=== PATIENT | male | born 1930 | race Caucasian/White ===

== ENCOUNTER 2019-02-14 16:29 | Inpatient (IN) | payer OTHER, MEDICAID ==
[~2019-02-14] VITALS: Ht 175.3 cm; Wt 75.7 kg
[2019-02-14 16:32] VITALS: BP_SYST 110
[2019-02-14] MEDS ORDERED: NS 500 ML IV ONE (16:45)
[2019-02-14 17:14] LABS: BASOPHILS # (AUTO) 0.1 K/uL (0.0-0.2); BASOPHILS % (AUTO) 0.9 % (0.0-2.0); EOSINOPHILS # (AUTO) 0.3 K/uL (0.0-0.4); EOSINOPHILS % (AUTO) 3.2 % (0.0-4.0); HEMATOCRIT 26.7 % (36-54); LYMPHOCYTES # (AUTO) 1.5 K/uL (1.0-5.5); LYMPHOCYTES % (AUTO) 15.5 % (20.5-51.5); MEAN CORPUSCULAR HEMOGLOBIN 31 pg (27-31); MEAN CORPUSCULAR HGB CONC 34 % (32-36); MEAN CORPUSCULAR VOLUME 92 fL (79.0-98.0); MONOCYTES # (AUTO) 0.6 K/uL (0.0-1.0); MONOCYTES % (AUTO) 6.4 % (1.7-9.3); NEUTROPHILS # (AUTO) 7.1 K/uL (1.8-7.7); PLATELET COUNT (AUTO) 338 K/uL (130-430); RED BLOOD CELL COUNT(AUTO) 2.91 MIL/uL (4.2-6.2); RED CELL DISTRIBUTION WIDTH 14.5 % (9.0-15.0); WHITE BLOOD COUNT (AUTO) 9.6 K/uL (4.8-10.8)
[2019-02-14 17:30] LABS: INR 1.1 (0.80-1.20); PROTHROMBIN TIME 11.1 SECS (9.5-12.5)
[2019-02-14 17:32] LABS: ANION GAP 11 (5-15); CALCIUM 8.8 mg/dL (8.4-11.0); CHLORIDE 103 mmol/L (98-107); CREATININE 3.43 mg/dL (0.55-1.30); GLUCOSE 92 mg/dL (70-99); POTASSIUM 4.8 mmol/L (3.5-5.1); SODIUM SERUM 135 mmol/L (136-145); UREA NITROGEN, BLOOD 51 mg/dL (8-21)
[2019-02-14 17:38] LABS: ALANINE AMINOTRANSFERASE 10 U/L (12-78); ALBUMIN 2.6 g/dL (3.4-4.8); ASPARTATE AMINOTRANSFERASE 16 U/L (10-37); TOTAL BILIRUBIN 0.4 mg/dL (0.0-1.0)
[2019-02-14 17:51] LABS: BILIRUBIN,URINE NEGATIVE (NEGATIVE); CLARITY/URINE CLOUDY (CLEAR); COLOR,URINE YELLOW (YELLOW); GLUCOSE,URINE NEGATIVE (NEGATIVE); KETONES,URINE NEGATIVE (NEGATIVE); LEUKOCYTE ESTERASE ,URINE 3+ (NEGATIVE); NITRITE, URINE NEGATIVE (NEGATIVE); PROTEIN URINE NEGATIVE (NEGATIVE); UROBILINOGEN,URINE 0.2 (0.2-1.0)
[2019-02-14 17:54] LABS: BLOOD, URINE TRACE (NEGATIVE)
[2019-02-14 18:03] LABS: BACTERIA,URINE MODERATE /HPF (None Seen); WBC,URINE >100 /HPF (0-3)
[2019-02-14 18:04] LABS: MUCUS,URINE None Seen /LPF (None Seen); URINE AMORPHOUS URATE 3+ /HPF (None Seen)
[2019-02-14] MEDS ORDERED: LEVOFLOXACIN 500 MG/D5W 100 ML IV ONE (19:15)
[2019-02-14 20:18] VITALS: BP_SYST 131
[2019-02-14 20:50] VITALS: BP_SYST 135
[2019-02-14] MEDS ORDERED: MILK OF MAGNESIA 30 ML UDC PO PRN (21:45)
[2019-02-14] MEDS ORDERED: ACETAMINOPHEN 325 MG TABLET PO PRN (21:45)
[2019-02-14] MEDS ORDERED: BISACODYL 10 MG/SUPPOSITORY RC PRN (21:45)
[2019-02-14] MEDS: 0.45% NACL 1,000 ML IV SCH (22:44)
[2019-02-15 00:18] VITALS: BP_SYST 112
[2019-02-15] MEDS: 0.45% NACL 1,000 ML IV SCH ×3 (03:17→19:39)
[2019-02-15] MEDS ORDERED: ASPI-1153 PO (03:39)
[2019-02-15] MEDS ORDERED: DILT240C91 PO (03:39)
[2019-02-15] MEDS ORDERED: LOSA25TA3 PO (03:39)
[2019-02-15] MEDS ORDERED: AMI200 PO (03:39)
[2019-02-15] MEDS ORDERED: BISA10SU61 RC (03:39)
[2019-02-15] MEDS ORDERED: ACET-2165 PO (03:39)
[2019-02-15] MEDS ORDERED: MIRT15TA7 PO (03:48)
[2019-02-15] MEDS ORDERED: MOM PO (03:48)
[2019-02-15] MEDS ORDERED: RIVA1PAT12 TD (03:48)
[2019-02-15] MEDS ORDERED: TAMS-11 PO (03:48)
[2019-02-15] MEDS ORDERED: PRO40 PO (03:48)
[2019-02-15] MEDS ORDERED: MULT-1117 (03:48)
[2019-02-15] MEDS ORDERED: OSCD500 GT (03:48)
[2019-02-15 06:13] LABS: ALANINE AMINOTRANSFERASE 13 U/L (12-78); ALBUMIN 2.2 g/dL (3.4-4.8); ANION GAP 7 (5-15); ASPARTATE AMINOTRANSFERASE 10 U/L (10-37); CHLORIDE 104 mmol/L (98-107); CREATININE 2.82 mg/dL (0.55-1.30); GLUCOSE 86 mg/dL (70-99); POTASSIUM 4.2 mmol/L (3.5-5.1); SODIUM SERUM 132 mmol/L (136-145); TOTAL BILIRUBIN 0.3 mg/dL (0.0-1.0); UREA NITROGEN, BLOOD 47 mg/dL (8-21)
[2019-02-15] MEDS: PANTOPRAZOLE SODIUM 40 MG TAB PO SCH ×2 (06:48→17:27)
[2019-02-15 07:35] VITALS: BP_SYST 125
[2019-02-15] MEDS: CALCIUM CARBONATE/VITAMIN D3 1 TAB TABLET PO SCH ×2 (09:01→21:22)
[2019-02-15] MEDS: TAMSULOSIN HCL 0.4 MG CAP PO SCH (09:01)
[2019-02-15] MEDS: ASPIRIN 81 MG TAB.CHEW PO SCH (09:01)
[2019-02-15] MEDS: MULTIVITAMINS TAB 1 TABLET PO SCH (09:01)
[2019-02-15] MEDS: DILTIAZEM HCL 240 MG CAP.SR.24H PO SCH (09:05)
[2019-02-15] MEDS: LOSARTAN POTASSIUM 25 MG TABLET PO SCH (09:05)
[2019-02-15] MEDS: AMIODARONE HCL 200 MG TABLET PO SCH (09:06)
[2019-02-15 12:13] VITALS: BP_SYST 119
[2019-02-15 17:02] VITALS: BP_SYST 105
[2019-02-15] MEDS ORDERED: COMMUNICATION ORDER XX ONE ×2 (19:30→20:00)
[2019-02-15 20:08] VITALS: BP_SYST 121
[2019-02-15] MEDS: MIRTAZAPINE 15 MG TABLET PO SCH (21:22)
[2019-02-16 01:42] VITALS: BP_SYST 117
[2019-02-16] MEDS: 0.45% NACL 1,000 ML IV SCH ×2 (06:19→14:37)
[2019-02-16] MEDS: PANTOPRAZOLE SODIUM 40 MG TAB PO SCH ×2 (06:19→16:12)
[2019-02-16 07:47] VITALS: BP_SYST 145
[2019-02-16 07:50] LABS: ALANINE AMINOTRANSFERASE 9 U/L (12-78); ALBUMIN 2.3 g/dL (3.4-4.8); ANION GAP 9 (5-15); ASPARTATE AMINOTRANSFERASE 13 U/L (10-37); CALCIUM 8.2 mg/dL (8.4-11.0); CHLORIDE 105 mmol/L (98-107); CREATININE 2.85 mg/dL (0.55-1.30); GLUCOSE 88 mg/dL (70-99); PHOSPHORUS 3.8 mg/dL (2.7-4.5); POTASSIUM 4.6 mmol/L (3.5-5.1); SODIUM SERUM 134 mmol/L (136-145); TOTAL BILIRUBIN 0.4 mg/dL (0.0-1.0); UREA NITROGEN, BLOOD 43 mg/dL (8-21)
[2019-02-16 07:56] LABS: BASOPHILS # (AUTO) 0.1 K/uL (0.0-0.2); BASOPHILS % (AUTO) 0.9 % (0.0-2.0); EOSINOPHILS # (AUTO) 0.3 K/uL (0.0-0.4); EOSINOPHILS % (AUTO) 3.3 % (0.0-4.0); HEMATOCRIT 23.3 % (36-54); HEMOGLOBIN 7.9 g/dL (14.0-18.0); LYMPHOCYTES # (AUTO) 1.6 K/uL (1.0-5.5); LYMPHOCYTES % (AUTO) 17.5 % (20.5-51.5); MEAN CORPUSCULAR HEMOGLOBIN 31 pg (27-31); MEAN CORPUSCULAR HGB CONC 34 % (32-36); MEAN CORPUSCULAR VOLUME 92 fL (79.0-98.0); MONOCYTES # (AUTO) 0.8 K/uL (0.0-1.0); MONOCYTES % (AUTO) 8.6 % (1.7-9.3); NEUTROPHILS # (AUTO) 6.3 K/uL (1.8-7.7); PLATELET COUNT (AUTO) 300 K/uL (130-430); RED BLOOD CELL COUNT(AUTO) 2.54 MIL/uL (4.2-6.2); RED CELL DISTRIBUTION WIDTH 14.3 % (9.0-15.0); WHITE BLOOD COUNT (AUTO) 9.1 K/uL (4.8-10.8)
[2019-02-16] MEDS ORDERED: EPOETIN ALFA 10,000 UNITS/ML VIAL SUBCUT SCH ×2 (09:00→09:47)
[2019-02-16 10:04] LABS: NEUTROPHILS % (AUTO) 69.7 % (40.0-70.0)
[2019-02-16] MEDS: ASPIRIN 81 MG TAB.CHEW PO SCH (11:09)
[2019-02-16] MEDS: LOSARTAN POTASSIUM 25 MG TABLET PO SCH (11:09)
[2019-02-16] MEDS: DILTIAZEM HCL 240 MG CAP.SR.24H PO SCH (11:09)
[2019-02-16] MEDS: CALCIUM CARBONATE/VITAMIN D3 1 TAB TABLET PO SCH ×2 (11:10→21:33)
[2019-02-16] MEDS: AMIODARONE HCL 200 MG TABLET PO SCH (11:10)
[2019-02-16] MEDS: MULTIVITAMINS TAB 1 TABLET PO SCH (11:10)
[2019-02-16] MEDS: TAMSULOSIN HCL 0.4 MG CAP PO SCH (11:10)
[2019-02-16 12:00] VITALS: BP_SYST 122
[2019-02-16 13:52] LABS: TOTAL IRON BIND. CAPACITY 117 ug/dL (250-450)
[2019-02-16] MEDS ORDERED: FERROUS GLUCONATE 300 MG TABLET PO ONE (14:45)
[2019-02-16 14:48] LABS: URINE SODIUM, RANDOM 41 mmol/L (40-220)
[2019-02-16 17:05] VITALS: BP_SYST 122; BP_SYST 137
[2019-02-16] MEDS: EPOETIN ALFA 10,000 UNITS/ML VIAL SUBCUT SCH (18:00)
[2019-02-16 19:22] LABS: URIC ACID 5.2 mg/dL (2.4-7.0)
[2019-02-16 20:15] VITALS: BP_SYST 116
[2019-02-16] MEDS ORDERED: LEVOFLOXACIN 250 MG/D5W 50 ML IV SCH (21:00)
[2019-02-16] MEDS: FERROUS GLUCONATE 300 MG TABLET PO SCH (21:33)
[2019-02-16] MEDS: MIRTAZAPINE 15 MG TABLET PO SCH (21:33)
[2019-02-17] MEDS: 0.45% NACL 1,000 ML IV SCH ×4 (00:46→18:10)
[2019-02-17 01:50] VITALS: BP_SYST 138
[2019-02-17 06:08] LABS: FOLATE (FOLIC ACID) 7.5 ng/mL (>3.0); PROSTATE SPECIFIC AG TOTAL <0.1 ng/mL (0.0-4.0)
[2019-02-17] MEDS: PANTOPRAZOLE SODIUM 40 MG TAB PO SCH ×2 (06:25→16:58)
[2019-02-17 06:35] LABS: BASOPHILS # (AUTO) 0.1 K/uL (0.0-0.2); BASOPHILS % (AUTO) 0.9 % (0.0-2.0); EOSINOPHILS # (AUTO) 0.2 K/uL (0.0-0.4); EOSINOPHILS % (AUTO) 2.8 % (0.0-4.0); HEMATOCRIT 22.8 % (36-54); HEMOGLOBIN 7.8 g/dL (14.0-18.0); LYMPHOCYTES # (AUTO) 1.3 K/uL (1.0-5.5); LYMPHOCYTES % (AUTO) 15.7 % (20.5-51.5); MEAN CORPUSCULAR HEMOGLOBIN 31 pg (27-31); MEAN CORPUSCULAR HGB CONC 34 % (32-36); MEAN CORPUSCULAR VOLUME 91 fL (79.0-98.0); MONOCYTES # (AUTO) 0.6 K/uL (0.0-1.0); MONOCYTES % (AUTO) 7.2 % (1.7-9.3); NEUTROPHILS # (AUTO) 5.9 K/uL (1.8-7.7); NEUTROPHILS % (AUTO) 73.4 % (40.0-70.0); PLATELET COUNT (AUTO) 289 K/uL (130-430); RED CELL DISTRIBUTION WIDTH 14.4 % (9.0-15.0)
[2019-02-17 06:47] LABS: ANION GAP 8 (5-15); CALCIUM 8.4 mg/dL (8.4-11.0); CHLORIDE 107 mmol/L (98-107); CREATININE 2.54 mg/dL (0.55-1.30); GLUCOSE 88 mg/dL (70-99); POTASSIUM 4.4 mmol/L (3.5-5.1); SODIUM SERUM 134 mmol/L (136-145); UREA NITROGEN, BLOOD 38 mg/dL (8-21)
[2019-02-17 08:00] VITALS: BP_SYST 130
[2019-02-17 08:10] LABS: FREE PSA <0.01 ng/mL
[2019-02-17] MEDS: LOSARTAN POTASSIUM 25 MG TABLET PO SCH (09:16)
[2019-02-17] MEDS: FERROUS GLUCONATE 300 MG TABLET PO SCH ×2 (09:21→20:48)
[2019-02-17] MEDS: ASPIRIN 81 MG TAB.CHEW PO SCH (09:23)
[2019-02-17] MEDS: CALCIUM CARBONATE/VITAMIN D3 1 TAB TABLET PO SCH ×2 (09:23→20:48)
[2019-02-17] MEDS: TAMSULOSIN HCL 0.4 MG CAP PO SCH (09:24)
[2019-02-17] MEDS: MULTIVITAMINS TAB 1 TABLET PO SCH (09:24)
[2019-02-17] MEDS: DILTIAZEM HCL 240 MG CAP.SR.24H PO SCH (09:25)
[2019-02-17] MEDS: AMIODARONE HCL 200 MG TABLET PO SCH (09:25)
[2019-02-17 12:31] VITALS: BP_SYST 155
[2019-02-17 17:26] VITALS: BP_SYST 130
[2019-02-17] MEDS: MIRTAZAPINE 15 MG TABLET PO SCH (20:48)
[2019-02-17 21:02] VITALS: BP_SYST 126
[2019-02-17 22:51] VITALS: BP_SYST 148
[2019-02-18] VITALS (10 sets, daily range): BP systolic 102–150
[2019-02-18] MEDS: 0.45% NACL 1,000 ML IV SCH ×3 (01:02→18:22)
[2019-02-18] MEDS: LORazepam 1 MG TABLET PO PRN ×2 (03:19→20:28)
[2019-02-18] MEDS: PANTOPRAZOLE SODIUM 40 MG TAB PO SCH ×2 (06:13→16:41)
[2019-02-18 06:50] LABS: BASOPHILS # (AUTO) 0.1 K/uL (0.0-0.2); EOSINOPHILS # (AUTO) 0.2 K/uL (0.0-0.4); EOSINOPHILS % (AUTO) 3.3 % (0.0-4.0); HEMATOCRIT 22.1 % (36-54); HEMOGLOBIN 7.5 g/dL (14.0-18.0); LYMPHOCYTES # (AUTO) 1.5 K/uL (1.0-5.5); LYMPHOCYTES % (AUTO) 19.4 % (20.5-51.5); MEAN CORPUSCULAR HEMOGLOBIN 31 pg (27-31); MEAN CORPUSCULAR HGB CONC 34 % (32-36); MEAN CORPUSCULAR VOLUME 91 fL (79.0-98.0); MONOCYTES # (AUTO) 0.6 K/uL (0.0-1.0); MONOCYTES % (AUTO) 8.1 % (1.7-9.3); NEUTROPHILS # (AUTO) 5.1 K/uL (1.8-7.7); PLATELET COUNT (AUTO) 280 K/uL (130-430); RED BLOOD CELL COUNT(AUTO) 2.42 MIL/uL (4.2-6.2); RED CELL DISTRIBUTION WIDTH 14.6 % (9.0-15.0); WHITE BLOOD COUNT (AUTO) 7.5 K/uL (4.8-10.8)
[2019-02-18 07:02] LABS: ANION GAP 9 (5-15); CALCIUM 7.9 mg/dL (8.4-11.0); CHLORIDE 107 mmol/L (98-107); CREATININE 2.51 mg/dL (0.55-1.30); GLUCOSE 99 mg/dL (70-99); POTASSIUM 4.2 mmol/L (3.5-5.1); SODIUM SERUM 135 mmol/L (136-145); UREA NITROGEN, BLOOD 32 mg/dL (8-21)
[2019-02-18] MEDS: AMOXICILLIN/CLAVULANATE POTASSIUM 500 MG TABLET PO SCH (08:51)
[2019-02-18] MEDS: FERROUS GLUCONATE 300 MG TABLET PO SCH ×2 (08:51→20:25)
[2019-02-18] MEDS: TAMSULOSIN HCL 0.4 MG CAP PO SCH (08:51)
[2019-02-18] MEDS: ASPIRIN 81 MG TAB.CHEW PO SCH (08:51)
[2019-02-18] MEDS: CALCIUM CARBONATE/VITAMIN D3 1 TAB TABLET PO SCH ×2 (08:51→20:25)
[2019-02-18] MEDS: MULTIVITAMINS TAB 1 TABLET PO SCH (08:51)
[2019-02-18] MEDS: AMIODARONE HCL 200 MG TABLET PO SCH (08:52)
[2019-02-18] MEDS: LOSARTAN POTASSIUM 25 MG TABLET PO SCH (08:53)
[2019-02-18] MEDS: DILTIAZEM HCL 240 MG CAP.SR.24H PO SCH (08:53)
[2019-02-18 09:48] LABS: NEUTROPHILS % (AUTO) 68.2 % (40.0-70.0)
[2019-02-18 10:27] LABS: CREATININE, URINE 39.3 mg/dL; MICROALBUMIN URINE RANDOM 61.5 ug/ml (NOT ESTABLISHED); MICROALBUMIN/CREAT RATIO, UR 156.5 MG/G CRE (0.0-30.0)
[2019-02-18 18:07] LABS: BASOPHILS # (AUTO) 0.1 K/uL (0.0-0.2); BASOPHILS % (AUTO) 0.9 % (0.0-2.0); EOSINOPHILS # (AUTO) 0.2 K/uL (0.0-0.4); EOSINOPHILS % (AUTO) 2.6 % (0.0-4.0); HEMATOCRIT 30.7 % (36-54); HEMOGLOBIN 10.6 g/dL (14.0-18.0); LYMPHOCYTES # (AUTO) 0.8 K/uL (1.0-5.5); LYMPHOCYTES % (AUTO) 11.1 % (20.5-51.5); MEAN CORPUSCULAR HEMOGLOBIN 32 pg (27-31); MEAN CORPUSCULAR HGB CONC 35 % (32-36); MEAN CORPUSCULAR VOLUME 91 fL (79.0-98.0); MONOCYTES # (AUTO) 0.5 K/uL (0.0-1.0); MONOCYTES % (AUTO) 6.6 % (1.7-9.3); NEUTROPHILS # (AUTO) 5.8 K/uL (1.8-7.7); PLATELET COUNT (AUTO) 275 K/uL (130-430); RED BLOOD CELL COUNT(AUTO) 3.35 MIL/uL (4.2-6.2); RED CELL DISTRIBUTION WIDTH 14.2 % (9.0-15.0); WHITE BLOOD COUNT (AUTO) 7.3 K/uL (4.8-10.8)
[2019-02-18 18:15] LABS: ANION GAP 7 (5-15); CALCIUM 8.4 mg/dL (8.4-11.0); CHLORIDE 109 mmol/L (98-107); GLUCOSE 122 mg/dL (70-99); POTASSIUM 4.4 mmol/L (3.5-5.1); SODIUM SERUM 136 mmol/L (136-145); UREA NITROGEN, BLOOD 30 mg/dL (8-21)
[2019-02-18 18:36] LABS: NEUTROPHILS % (AUTO) 78.8 % (40.0-70.0)
[2019-02-18] MEDS: MIRTAZAPINE 15 MG TABLET PO SCH (20:25)
[2019-02-19] VITALS (7 sets, daily range): BP systolic 143–152
[2019-02-19] MEDS: PANTOPRAZOLE SODIUM 40 MG TAB PO SCH ×2 (06:26→17:23)
[2019-02-19 07:08] LABS: BASOPHILS # (AUTO) 0.1 K/uL (0.0-0.2); EOSINOPHILS # (AUTO) 0.2 K/uL (0.0-0.4); EOSINOPHILS % (AUTO) 3.2 % (0.0-4.0); HEMATOCRIT 29.5 % (36-54); HEMOGLOBIN 10.2 g/dL (14.0-18.0); LYMPHOCYTES # (AUTO) 0.9 K/uL (1.0-5.5); LYMPHOCYTES % (AUTO) 12.2 % (20.5-51.5); MEAN CORPUSCULAR HEMOGLOBIN 32 pg (27-31); MEAN CORPUSCULAR HGB CONC 35 % (32-36); MEAN CORPUSCULAR VOLUME 92 fL (79.0-98.0); MONOCYTES # (AUTO) 0.6 K/uL (0.0-1.0); MONOCYTES % (AUTO) 7.7 % (1.7-9.3); NEUTROPHILS # (AUTO) 5.5 K/uL (1.8-7.7); NEUTROPHILS % (AUTO) 75.9 % (40.0-70.0); PLATELET COUNT (AUTO) 236 K/uL (130-430); RED BLOOD CELL COUNT(AUTO) 3.22 MIL/uL (4.2-6.2); RED CELL DISTRIBUTION WIDTH 14.4 % (9.0-15.0); WHITE BLOOD COUNT (AUTO) 7.3 K/uL (4.8-10.8)
[2019-02-19] MEDS: ASPIRIN 81 MG TAB.CHEW PO SCH (08:37)
[2019-02-19] MEDS: DILTIAZEM HCL 240 MG CAP.SR.24H PO SCH (08:38)
[2019-02-19] MEDS: LOSARTAN POTASSIUM 25 MG TABLET PO SCH (08:38)
[2019-02-19] MEDS: AMOXICILLIN/CLAVULANATE POTASSIUM 500 MG TABLET PO SCH (08:38)
[2019-02-19] MEDS: MULTIVITAMINS TAB 1 TABLET PO SCH (08:38)
[2019-02-19] MEDS: TAMSULOSIN HCL 0.4 MG CAP PO SCH (08:38)
[2019-02-19] MEDS: CALCIUM CARBONATE/VITAMIN D3 1 TAB TABLET PO SCH ×2 (08:38→21:56)
[2019-02-19] MEDS: AMIODARONE HCL 200 MG TABLET PO SCH (08:38)
[2019-02-19] MEDS: FERROUS GLUCONATE 300 MG TABLET PO SCH ×2 (08:38→21:56)
[2019-02-19] MEDS: 0.45% NACL 1,000 ML IV SCH ×2 (08:39)
[2019-02-19 12:15] LABS: BILIRUBIN,URINE NEGATIVE (NEGATIVE); BLOOD, URINE 1+ (NEGATIVE); CLARITY/URINE CLEAR (CLEAR); COLOR,URINE YELLOW (YELLOW); GLUCOSE,URINE NEGATIVE (NEGATIVE); KETONES,URINE NEGATIVE (NEGATIVE); LEUKOCYTE ESTERASE ,URINE 3+ (NEGATIVE); NITRITE, URINE NEGATIVE (NEGATIVE); PROTEIN URINE NEGATIVE (NEGATIVE); UROBILINOGEN,URINE 0.2 (0.2-1.0)
[2019-02-19 12:35] LABS: BACTERIA,URINE MODERATE /HPF (None Seen); MUCUS,URINE 1+ /LPF (None Seen); RBC,URINE 0-3 /HPF (0-3); WBC,URINE >100 /HPF (0-3)
[2019-02-19] MEDS: EPOETIN ALFA 10,000 UNITS/ML VIAL SUBCUT SCH (17:24)
[2019-02-19] MEDS: MIRTAZAPINE 15 MG TABLET PO SCH (21:56)
[2019-02-20 01:11] VITALS: BP_SYST 146
[2019-02-20] MEDS: 0.45% NACL 1,000 ML IV SCH (01:28)
[2019-02-20] MEDS: PANTOPRAZOLE SODIUM 40 MG TAB PO SCH (06:07)
[2019-02-20 08:21] VITALS: BP_SYST 147
[2019-02-20] MEDS: MULTIVITAMINS TAB 1 TABLET PO SCH (08:42)
[2019-02-20] MEDS: ASPIRIN 81 MG TAB.CHEW PO SCH (08:42)
[2019-02-20] MEDS: TAMSULOSIN HCL 0.4 MG CAP PO SCH (08:42)
[2019-02-20] MEDS: AMIODARONE HCL 200 MG TABLET PO SCH (08:42)
[2019-02-20] MEDS: CALCIUM CARBONATE/VITAMIN D3 1 TAB TABLET PO SCH (08:42)
[2019-02-20] MEDS: LOSARTAN POTASSIUM 25 MG TABLET PO SCH (08:43)
[2019-02-20] MEDS: DILTIAZEM HCL 240 MG CAP.SR.24H PO SCH (08:43)
[2019-02-20] MEDS: FERROUS GLUCONATE 300 MG TABLET PO SCH (08:53)
[2019-02-20] MEDS: AMOXICILLIN/CLAVULANATE POTASSIUM 500 MG TABLET PO SCH (08:53)
[2019-02-20 10:31] VITALS: BP_SYST 151
[2019-02-20 12:49] VITALS: BP_SYST 151
== END 2019-02-20 12:30 | DRG 871 ==
LOC: SED 16:29 → STU 19:17
PROVIDERS: ADMIT Internal Medicine; ATTEND Internal Medicine
PROC: 30233N1 Transfusion of Nonautologous Red Blood Cells into Peripheral Vein, Percutaneous Approach (ICD-10-PCS; principal; 2019-02-18)
DX: A41.9 Sepsis, unspecified organism (principal); E43 Unspecified severe protein-calorie malnutrition; N17.0 Acute kidney failure with tubular necrosis; I48.20 Chronic atrial fibrillation, unspecified; G93.40 Encephalopathy, unspecified; I69.354 Hemiplegia and hemiparesis following cerebral infarction affecting left non-dominant side; N13.6 Pyonephrosis; Z96.659 Presence of unspecified artificial knee joint; N18.9 Chronic kidney disease, unspecified; F03.90 Unspecified dementia, unspecified severity, without behavioral disturbance, psychotic disturbance, mood disturbance, and anxiety; I12.9 Hypertensive chronic kidney disease with stage 1 through stage 4 chronic kidney disease, or unspecified chronic kidney disease; I25.10 Atherosclerotic heart disease of native coronary artery without angina pectoris; F32.9 Major depressive disorder, single episode, unspecified; K27.9 Peptic ulcer, site unspecified, unspecified as acute or chronic, without hemorrhage or perforation; K21.0 Gastro-esophageal reflux disease with esophagitis; J44.9 Chronic obstructive pulmonary disease, unspecified; N40.0 Benign prostatic hyperplasia without lower urinary tract symptoms; D63.1 Anemia in chronic kidney disease; N30.90 Cystitis, unspecified without hematuria; Z87.11 Personal history of peptic ulcer disease; Z86.718 Personal history of other venous thrombosis and embolism; Z85.46 Personal history of malignant neoplasm of prostate; Z85.038 Personal history of other malignant neoplasm of large intestine; Z79.899 Other long term (current) drug therapy; Z68.24 Body mass index [BMI] 24.0-24.9, adult
CPT/HCPCS: 36415; 71045; 76770; 80048; 80053; 81000-TC; 82043; 82570; 82570-TC; 82607; 82746; 83540-TC; 83550-TC; 83605; 83735-TC; 83930-TC; 84100-TC; 84153; 84302-TC; 84484; 84550-TC; 85025; 85610-TC; 85730-TC; 86886; 86900; 86901; 86920; 87040-TC; 87081; 87086; 93005; 96365; 99285; G0378; J0885; J1956; J7030; J7040; J7050; P9021

== ENCOUNTER 2019-03-08 21:02 | Inpatient (IN) | payer OTHER, MEDICAID ==
[~2019-03-08] VITALS: Ht 175.3 cm; Wt 71.2 kg
[~2019-03-08 21:02] MED LIST: ACET-2165 PO; AMI200 PO; ASPI-1153 PO; BISA10SU61 RC; DILT240C91 PO; LOSA25TA3 PO; MIRT15TA7 PO; MOM PO; MULT-1117; OSCD500 GT; PRO40 PO; RIVA1PAT12 TD; TAMS-11 PO
[2019-03-09] MEDS: 0.45% NACL 1,000 ML IV SCH ×3 (04:08→21:38)
[2019-03-09 04:42] VITALS: BP_SYST 137
[2019-03-09] MEDS ORDERED: AZIT500T3 PO (05:18)
[2019-03-09] MEDS ORDERED: FERR-69 PO (05:18)
[2019-03-09] MEDS ORDERED: MOM PO (05:18)
[2019-03-09 07:21] LABS: BASOPHILS # (AUTO) 0.1 K/uL (0.0-0.2); BASOPHILS % (AUTO) 1.2 % (0.0-2.0); EOSINOPHILS # (AUTO) 0.3 K/uL (0.0-0.4); EOSINOPHILS % (AUTO) 4.7 % (0.0-4.0); HEMATOCRIT 31.8 % (36-54); HEMOGLOBIN 10.8 g/dL (14.0-18.0); LYMPHOCYTES # (AUTO) 1.6 K/uL (1.0-5.5); LYMPHOCYTES % (AUTO) 25.1 % (20.5-51.5); MEAN CORPUSCULAR HEMOGLOBIN 32 pg (27-31); MEAN CORPUSCULAR HGB CONC 34 % (32-36); MEAN CORPUSCULAR VOLUME 94 fL (79.0-98.0); MONOCYTES # (AUTO) 0.6 K/uL (0.0-1.0); MONOCYTES % (AUTO) 9.2 % (1.7-9.3); NEUTROPHILS # (AUTO) 3.8 K/uL (1.8-7.7); NEUTROPHILS % (AUTO) 59.8 % (40.0-70.0); PLATELET COUNT (AUTO) 196 K/uL (130-430); RED CELL DISTRIBUTION WIDTH 15.6 % (9.0-15.0); WHITE BLOOD COUNT (AUTO) 6.3 K/uL (4.8-10.8)
[2019-03-09 07:52] LABS: ANION GAP 6 (5-15); CALCIUM 8.4 mg/dL (8.4-11.0); CHLORIDE 103 mmol/L (98-107); CREATININE 2.28 mg/dL (0.55-1.30); GLUCOSE 88 mg/dL (70-99); POTASSIUM 4.2 mmol/L (3.5-5.1); SODIUM SERUM 133 mmol/L (136-145); UREA NITROGEN, BLOOD 52 mg/dL (8-21)
[2019-03-09 08:00] VITALS: BP_SYST 103
[2019-03-09 12:45] VITALS: BP_SYST 131
[2019-03-09 16:30] VITALS: BP_SYST 127
[2019-03-09] MEDS ORDERED: MILK OF MAGNESIA 30 ML UDC PO PRN (16:30)
[2019-03-09] MEDS ORDERED: BISACODYL 10 MG/SUPPOSITORY RC PRN ×2 (16:30→20:45)
[2019-03-09] MEDS ORDERED: ACETAMINOPHEN 325 MG TABLET PO PRN (16:30)
[2019-03-09 20:00] VITALS: BP_SYST 125
[2019-03-09] MEDS ORDERED: TAMSULOSIN HCL 0.4 MG CAP PO SCH (20:45)
[2019-03-09] MEDS ORDERED: ACETAMINOPHEN 325 MG TABLET PO SCH (20:45)
[2019-03-09] MEDS ORDERED: ASPIRIN 81 MG TABLET(ECOTRIN) PO SCH (20:45)
[2019-03-09] MEDS ORDERED: MILK OF MAGNESIA 30 ML UDC PO SCH (20:45)
[2019-03-09] MEDS ORDERED: MIRTAZAPINE 15 MG TABLET PO SCH (21:00)
[2019-03-09] MEDS ORDERED: AZITHROMYCIN 250 MG TABLET PO SCH (21:00)
[2019-03-09] MEDS: FERROUS SULFATE 325 MG TABLET.DR PO SCH (21:33)
[2019-03-09] MEDS: AZITHROMYCIN 250 MG TABLET PO SCH (21:34)
[2019-03-09] MEDS: MIRTAZAPINE 15 MG TABLET PO SCH (21:34)
[2019-03-10 00:30] VITALS: BP_SYST 129
[2019-03-10] MEDS: 0.45% NACL 1,000 ML IV SCH ×3 (03:00→21:56)
[2019-03-10 06:08] LABS: BASOPHILS # (AUTO) 0.1 K/uL (0.0-0.2); BASOPHILS % (AUTO) 0.9 % (0.0-2.0); EOSINOPHILS # (AUTO) 0.3 K/uL (0.0-0.4); EOSINOPHILS % (AUTO) 4.1 % (0.0-4.0); HEMATOCRIT 32.9 % (36-54); HEMOGLOBIN 11.1 g/dL (14.0-18.0); LYMPHOCYTES # (AUTO) 1.4 K/uL (1.0-5.5); LYMPHOCYTES % (AUTO) 21.7 % (20.5-51.5); MEAN CORPUSCULAR HEMOGLOBIN 31 pg (27-31); MEAN CORPUSCULAR HGB CONC 34 % (32-36); MEAN CORPUSCULAR VOLUME 92 fL (79.0-98.0); MONOCYTES # (AUTO) 0.6 K/uL (0.0-1.0); MONOCYTES % (AUTO) 8.4 % (1.7-9.3); NEUTROPHILS # (AUTO) 4.3 K/uL (1.8-7.7); NEUTROPHILS % (AUTO) 64.9 % (40.0-70.0); PLATELET COUNT (AUTO) 197 K/uL (130-430); RED BLOOD CELL COUNT(AUTO) 3.56 MIL/uL (4.2-6.2); RED CELL DISTRIBUTION WIDTH 15.5 % (9.0-15.0)
[2019-03-10 06:52] LABS: ALANINE AMINOTRANSFERASE 13 U/L (12-78); ALBUMIN 2.3 g/dL (3.4-4.8); ANION GAP 9 (5-15); ASPARTATE AMINOTRANSFERASE 15 U/L (10-37); CHLORIDE 103 mmol/L (98-107); GLUCOSE 85 mg/dL (70-99); PHOSPHORUS 3.2 mg/dL (2.7-4.5); POTASSIUM 4.3 mmol/L (3.5-5.1); SODIUM SERUM 132 mmol/L (136-145); TOTAL BILIRUBIN 0.5 mg/dL (0.0-1.0); UREA NITROGEN, BLOOD 43 mg/dL (8-21)
[2019-03-10] MEDS ORDERED: PANTOPRAZOLE SODIUM 40 MG TAB PO SCH (07:00)
[2019-03-10 07:01] LABS: WHITE BLOOD COUNT (AUTO) 6.6 K/uL (4.8-10.8)
[2019-03-10 08:00] VITALS: BP_SYST 120
[2019-03-10] MEDS: CALCIUM CARBONATE/VITAMIN D3 1 TAB TABLET GT SCH ×2 (08:23→21:58)
[2019-03-10] MEDS: PANTOPRAZOLE SODIUM 40 MG TAB PO SCH (08:23)
[2019-03-10] MEDS: MILK OF MAGNESIA 30 ML UDC PO SCH (08:23)
[2019-03-10] MEDS: MULTIVITAMINS TAB 1 TABLET PO SCH (08:23)
[2019-03-10] MEDS: FERROUS SULFATE 325 MG TABLET.DR PO SCH ×2 (08:23→21:57)
[2019-03-10] MEDS: TAMSULOSIN HCL 0.4 MG CAP PO SCH (08:23)
[2019-03-10] MEDS: ASPIRIN 81 MG TABLET(ECOTRIN) PO SCH (08:24)
[2019-03-10] MEDS: LOSARTAN POTASSIUM 25 MG TABLET PO SCH (08:24)
[2019-03-10] MEDS: DILTIAZEM HCL 240 MG CAP.SR.24H PO SCH (08:34)
[2019-03-10] MEDS: AMIODARONE HCL 200 MG TABLET PO SCH (08:34)
[2019-03-10] MEDS: RIVASTIGMINE 9.5 MG/24 HR PATCH.TD24 TD SCH (08:34)
[2019-03-10] MEDS ORDERED: CALCIUM CARBONATE/VITAMIN D3 1 TAB TABLET PO SCH (09:00)
[2019-03-10 11:25] VITALS: BP_SYST 121
[2019-03-10 15:18] VITALS: BP_SYST 126
[2019-03-10 15:42] LABS: BILIRUBIN,URINE NEGATIVE (NEGATIVE); BLOOD, URINE TRACE (NEGATIVE); CLARITY/URINE HAZY (CLEAR); COLOR,URINE YELLOW (YELLOW); GLUCOSE,URINE NEGATIVE (NEGATIVE); KETONES,URINE NEGATIVE (NEGATIVE); LEUKOCYTE ESTERASE ,URINE 2+ (NEGATIVE); NITRITE, URINE POSITIVE (NEGATIVE); PROTEIN URINE NEGATIVE (NEGATIVE); UROBILINOGEN,URINE 0.2 (0.2-1.0)
[2019-03-10 15:46] LABS: BACTERIA,URINE MODERATE /HPF (None Seen); MUCUS,URINE None Seen /LPF (None Seen); RBC,URINE 0-3 /HPF (0-3); WBC,URINE 20-50 /HPF (0-3)
[2019-03-10] MEDS: LEVOFLOXACIN 250 MG/D5W 50 ML IV SCH (17:18)
[2019-03-10 17:32] LABS: URINE SODIUM, RANDOM 54 mmol/L (40-220)
[2019-03-10 19:00] VITALS: BP_SYST 125
[2019-03-10 20:00] VITALS: BP_SYST 126
[2019-03-10] MEDS: MIRTAZAPINE 15 MG TABLET PO SCH (21:57)
[2019-03-10] MEDS: AZITHROMYCIN 250 MG TABLET PO SCH (21:57)
[2019-03-11] VITALS (7 sets, daily range): BP systolic 101–158
[2019-03-11 08:29] LABS: ANION GAP 6 (5-15); BASOPHILS # (AUTO) 0.1 K/uL (0.0-0.2); CALCIUM 8.3 mg/dL (8.4-11.0); CHLORIDE 107 mmol/L (98-107); CREATININE 1.75 mg/dL (0.55-1.30); EOSINOPHILS # (AUTO) 0.3 K/uL (0.0-0.4); EOSINOPHILS % (AUTO) 4.2 % (0.0-4.0); GLUCOSE 83 mg/dL (70-99); HEMATOCRIT 33.8 % (36-54); HEMOGLOBIN 11.5 g/dL (14.0-18.0); LYMPHOCYTES # (AUTO) 1.4 K/uL (1.0-5.5); LYMPHOCYTES % (AUTO) 23.5 % (20.5-51.5); MEAN CORPUSCULAR HEMOGLOBIN 31 pg (27-31); MEAN CORPUSCULAR HGB CONC 34 % (32-36); MEAN CORPUSCULAR VOLUME 93 fL (79.0-98.0); MONOCYTES # (AUTO) 0.5 K/uL (0.0-1.0); MONOCYTES % (AUTO) 8.3 % (1.7-9.3); NEUTROPHILS # (AUTO) 3.8 K/uL (1.8-7.7); PLATELET COUNT (AUTO) 213 K/uL (130-430); POTASSIUM 4.5 mmol/L (3.5-5.1); RED BLOOD CELL COUNT(AUTO) 3.65 MIL/uL (4.2-6.2); RED CELL DISTRIBUTION WIDTH 15.2 % (9.0-15.0); SODIUM SERUM 134 mmol/L (136-145); UREA NITROGEN, BLOOD 32 mg/dL (8-21)
[2019-03-11] MEDS: CALCIUM CARBONATE/VITAMIN D3 1 TAB TABLET GT SCH ×2 (08:43→21:07)
[2019-03-11] MEDS: AMIODARONE HCL 200 MG TABLET PO SCH (08:43)
[2019-03-11] MEDS: FERROUS SULFATE 325 MG TABLET.DR PO SCH ×2 (08:44→21:07)
[2019-03-11] MEDS: LOSARTAN POTASSIUM 25 MG TABLET PO SCH (08:44)
[2019-03-11] MEDS: MULTIVITAMINS TAB 1 TABLET PO SCH (08:44)
[2019-03-11] MEDS: MILK OF MAGNESIA 30 ML UDC PO SCH (08:44)
[2019-03-11] MEDS: ASPIRIN 81 MG TABLET(ECOTRIN) PO SCH (08:44)
[2019-03-11] MEDS: PANTOPRAZOLE SODIUM 40 MG TAB PO SCH (08:44)
[2019-03-11] MEDS: TAMSULOSIN HCL 0.4 MG CAP PO SCH (08:46)
[2019-03-11] MEDS: RIVASTIGMINE 9.5 MG/24 HR PATCH.TD24 TD SCH (08:58)
[2019-03-11] MEDS: DILTIAZEM HCL 240 MG CAP.SR.24H PO SCH (08:58)
[2019-03-11] MEDS: 0.45% NACL 1,000 ML IV SCH ×2 (10:29→17:37)
[2019-03-11] MEDS: LEVOFLOXACIN 250 MG/D5W 50 ML IV SCH (17:36)
[2019-03-11] MEDS: MIRTAZAPINE 15 MG TABLET PO SCH (21:07)
[2019-03-11] MEDS: AZITHROMYCIN 250 MG TABLET PO SCH (21:08)
[2019-03-12] MEDS ORDERED: HYDROcodone/ACETAMIN 5-325 MG TAB (NORCO/ VICODIN) PO PRN (00:15)
[2019-03-12] MEDS: TEMAZEPAM 15 MG CAPSULE PO PRN ×2 (00:34→18:44)
[2019-03-12] MEDS ORDERED: DICYCLOMINE HCL 10 MG CAPSULE ONE (00:45)
[2019-03-12] MEDS ORDERED: DICYCLOMINE HCL 10 MG CAPSULE PO SCH (01:00)
[2019-03-12] MEDS: 0.45% NACL 1,000 ML IV SCH ×2 (03:00→10:55)
[2019-03-12 06:19] LABS: BASOPHILS # (AUTO) 0.1 K/uL (0.0-0.2); BASOPHILS % (AUTO) 1.3 % (0.0-2.0); EOSINOPHILS # (AUTO) 0.4 K/uL (0.0-0.4); EOSINOPHILS % (AUTO) 5.8 % (0.0-4.0); HEMATOCRIT 31.4 % (36-54); HEMOGLOBIN 10.6 g/dL (14.0-18.0); MEAN CORPUSCULAR HEMOGLOBIN 31 pg (27-31); MEAN CORPUSCULAR HGB CONC 34 % (32-36); MEAN CORPUSCULAR VOLUME 93 fL (79.0-98.0); MONOCYTES # (AUTO) 0.5 K/uL (0.0-1.0); MONOCYTES % (AUTO) 8.2 % (1.7-9.3); NEUTROPHILS # (AUTO) 3.3 K/uL (1.8-7.7); NEUTROPHILS % (AUTO) 52.7 % (40.0-70.0); PLATELET COUNT (AUTO) 229 K/uL (130-430); RED BLOOD CELL COUNT(AUTO) 3.39 MIL/uL (4.2-6.2); RED CELL DISTRIBUTION WIDTH 15.2 % (9.0-15.0); WHITE BLOOD COUNT (AUTO) 6.3 K/uL (4.8-10.8)
[2019-03-12 06:43] LABS: ANION GAP 8 (5-15); CALCIUM 7.9 mg/dL (8.4-11.0); CHLORIDE 105 mmol/L (98-107); GLUCOSE 80 mg/dL (70-99); POTASSIUM 4.7 mmol/L (3.5-5.1); SODIUM SERUM 135 mmol/L (136-145); UREA NITROGEN, BLOOD 28 mg/dL (8-21)
[2019-03-12 08:00] VITALS: BP_SYST 117
[2019-03-12] MEDS: ASPIRIN 81 MG TABLET(ECOTRIN) PO SCH (10:04)
[2019-03-12] MEDS: CALCIUM CARBONATE/VITAMIN D3 1 TAB TABLET GT SCH ×2 (10:04→21:08)
[2019-03-12] MEDS: AMIODARONE HCL 200 MG TABLET PO SCH (10:05)
[2019-03-12] MEDS: DICYCLOMINE HCL 10 MG CAPSULE PO SCH ×3 (10:05→21:08)
[2019-03-12] MEDS: DILTIAZEM HCL 240 MG CAP.SR.24H PO SCH (10:06)
[2019-03-12] MEDS: FERROUS SULFATE 325 MG TABLET.DR PO SCH ×2 (10:06→21:08)
[2019-03-12] MEDS: LOSARTAN POTASSIUM 25 MG TABLET PO SCH (10:06)
[2019-03-12] MEDS: PANTOPRAZOLE SODIUM 40 MG TAB PO SCH (10:06)
[2019-03-12] MEDS: TAMSULOSIN HCL 0.4 MG CAP PO SCH (10:07)
[2019-03-12] MEDS: MILK OF MAGNESIA 30 ML UDC PO SCH (10:07)
[2019-03-12] MEDS: MULTIVITAMINS TAB 1 TABLET PO SCH (10:08)
[2019-03-12 12:00] VITALS: BP_SYST 117
[2019-03-12 16:00] VITALS: BP_SYST 120
[2019-03-12] MEDS: LEVOFLOXACIN 250 MG/D5W 50 ML IV SCH (18:44)
[2019-03-12 20:19] LABS: CREATININE, URINE 27.1 mg/dL; MICROALBUMIN URINE RANDOM 20.7 ug/ml (NOT ESTABLISHED); MICROALBUMIN/CREAT RATIO, UR 76.4 MG/G CRE (0.0-30.0)
[2019-03-12 20:37] VITALS: BP_SYST 137
[2019-03-12] MEDS ORDERED: AMOXICILLIN/CLAVULANATE POTASSIUM 500 MG TABLET PO SCH (21:00)
[2019-03-12] MEDS: MIRTAZAPINE 15 MG TABLET PO SCH (21:08)
[2019-03-13 00:07] LABS: PROSTATE SPECIFIC AG TOTAL <0.1 ng/mL (0.0-4.0)
[2019-03-13 01:06] LABS: FREE PSA <0.01 ng/mL
== END 2019-03-12 21:45 | DRG 70 ==
LOC: SMU 03-09 00:10 → STU 03-09 01:17
PROVIDERS: ADMIT Internal Medicine; ATTEND Internal Medicine
DX: G93.41 Metabolic encephalopathy (principal); N17.0 Acute kidney failure with tubular necrosis; I69.354 Hemiplegia and hemiparesis following cerebral infarction affecting left non-dominant side; I48.20 Chronic atrial fibrillation, unspecified; N39.0 Urinary tract infection, site not specified; N13.6 Pyonephrosis; I12.9 Hypertensive chronic kidney disease with stage 1 through stage 4 chronic kidney disease, or unspecified chronic kidney disease; N18.9 Chronic kidney disease, unspecified; R62.7 Adult failure to thrive; K21.9 Gastro-esophageal reflux disease without esophagitis; N40.1 Benign prostatic hyperplasia with lower urinary tract symptoms; F03.90 Unspecified dementia, unspecified severity, without behavioral disturbance, psychotic disturbance, mood disturbance, and anxiety; E86.0 Dehydration; D63.8 Anemia in other chronic diseases classified elsewhere; E87.5 Hyperkalemia; I25.10 Atherosclerotic heart disease of native coronary artery without angina pectoris; J44.9 Chronic obstructive pulmonary disease, unspecified; F32.9 Major depressive disorder, single episode, unspecified; Z96.652 Presence of left artificial knee joint; Z87.440 Personal history of urinary (tract) infections; Z87.11 Personal history of peptic ulcer disease; Z79.82 Long term (current) use of aspirin; Z85.46 Personal history of malignant neoplasm of prostate; Z85.038 Personal history of other malignant neoplasm of large intestine; Z68.23 Body mass index [BMI] 23.0-23.9, adult; Z79.899 Other long term (current) drug therapy
CPT/HCPCS: 36415; 76770; 80048; 80053; 81000-TC; 82043; 82570; 82570-TC; 83735-TC; 84100-TC; 84153; 84302-TC; 85025; 87081; 87086; 87186-TC; G0378; J1956; Q0144

== ENCOUNTER 2019-09-15 00:12 | Inpatient (IN) | payer OTHER, MEDICAID ==
[~2019-09-15] VITALS: Ht 175.3 cm; Wt 84.8 kg
[~2019-09-15 00:12] MED LIST changes: +AZIT500T3 PO; +FERR-69 PO; -OSCD500 GT; +OSCD500 PO
[2019-09-15 00:15] VITALS: BP_SYST 92
[2019-09-15] MEDS ORDERED: TAMS-11 PO (00:39)
[2019-09-15] MEDS ORDERED: FLEETMO RC (00:39)
[2019-09-15 01:02] LABS: BASOPHILS % (AUTO) 0.7 % (0.0-2.0); EOSINOPHILS % (AUTO) 0.6 % (0.0-4.0); HEMATOCRIT 35.3 % (36-54); HEMOGLOBIN 11.9 g/dL (14.0-18.0); LYMPHOCYTES # (AUTO) 1.4 K/uL (1.0-5.5); LYMPHOCYTES % (AUTO) 28.6 % (20.5-51.5); MEAN CORPUSCULAR HEMOGLOBIN 32 pg (27-31); MEAN CORPUSCULAR HGB CONC 34 % (32-36); MEAN CORPUSCULAR VOLUME 95 fL (79.0-98.0); MONOCYTES # (AUTO) 0.4 K/uL (0.0-1.0); MONOCYTES % (AUTO) 8.8 % (1.7-9.3); NEUTROPHILS % (AUTO) 61.3 % (40.0-70.0); PLATELET COUNT (AUTO) 182 K/uL (130-430); RED BLOOD CELL COUNT(AUTO) 3.72 MIL/uL (4.2-6.2); WHITE BLOOD COUNT (AUTO) 4.9 K/uL (4.8-10.8)
[2019-09-15 01:13] LABS: ANION GAP 11 (5-15); CALCIUM 8.6 mg/dL (8.4-11.0); CHLORIDE 104 mmol/L (98-107); CREATININE 2.75 mg/dL (0.55-1.30); GLUCOSE 92 mg/dL (70-99); POTASSIUM 4.2 mmol/L (3.5-5.1); SODIUM SERUM 139 mmol/L (136-145); UREA NITROGEN, BLOOD 62 mg/dL (8-21)
[2019-09-15 01:19] LABS: ALANINE AMINOTRANSFERASE 20 U/L (12-78); ALBUMIN 2.7 g/dL (3.4-4.8); ASPARTATE AMINOTRANSFERASE 33 U/L (10-37); TOTAL BILIRUBIN 0.6 mg/dL (0.0-1.0)
[2019-09-15 01:20] LABS: ALCOHOL, BLOOD < 3 mg/dL (<10)
[2019-09-15 01:21] LABS: ACETAMINOPHEN < 1 ug/mL (1-30)
[2019-09-15 01:44] LABS: BILIRUBIN,URINE NEGATIVE (NEGATIVE); CLARITY/URINE CLEAR (CLEAR); COLOR,URINE YELLOW (YELLOW); GLUCOSE,URINE NEGATIVE (NEGATIVE); KETONES,URINE NEGATIVE (NEGATIVE); LEUKOCYTE ESTERASE ,URINE 3+ (NEGATIVE); NITRITE, URINE NEGATIVE (NEGATIVE); PH,URINE 5.5 (5.0-8.0); PROTEIN URINE NEGATIVE (NEGATIVE); UROBILINOGEN,URINE 0.2 (0.2-1.0)
[2019-09-15 01:47] LABS: BLOOD, URINE TRACE (NEGATIVE)
[2019-09-15 01:49] LABS: BACTERIA,URINE MODERATE /HPF (None Seen); MUCUS,URINE 1+ /LPF (None Seen); WBC,URINE >100 /HPF (0-3)
[2019-09-15 01:52] LABS: BARBITURATE, URINE NEGATIVE (NEG <=200); BENZODIAZEPINE, URINE NEGATIVE (NEG <=150); CANNABINOID, URINE NEGATIVE (NEG <=50); COCAINE, URINE NEGATIVE (NEG <=150); METHAMPHETAMINES SCREEN,URINE NEGATIVE (NEG <=500); OPIATE, URINE NEGATIVE (NEG <=100); PHENCYCLIDINE SCREEN,URINE NEGATIVE (NEG <=25); UR TRICYCLIC ANTIDEPRESSANTS NEGATIVE (NEG <=300); URINE AMPHETAMINE NEGATIVE (NEG <=500); URINE METHADONE NEGATIVE (NEG <=200); URINE OXYCODONE SCREEN NEGATIVE (NEG <=100); URINE PROPOXYPHENE SCREEN NEGATIVE (NEG <=300)
[2019-09-15 01:54] LABS: INR 1.1 (0.80-1.20)
[2019-09-15] MEDS ORDERED: cefTRIAXone 1 GM IVPB PREMIX 50 ML IV ONE (02:15)
[2019-09-15 05:11] LABS: MEAN CORPUSCULAR HEMOGLOBIN 31 pg (27-31); WHITE BLOOD COUNT (AUTO) 4.6 K/uL (4.8-10.8)
[2019-09-15 05:15] LABS: BASOPHILS % (AUTO) 0.5 % (0.0-2.0); EOSINOPHILS % (AUTO) 0.3 % (0.0-4.0); HEMATOCRIT 36.5 % (36-54); HEMOGLOBIN 12.1 g/dL (14.0-18.0); LYMPHOCYTES % (AUTO) 21.5 % (20.5-51.5); MEAN CORPUSCULAR HGB CONC 33 % (32-36); MEAN CORPUSCULAR VOLUME 94 fL (79.0-98.0); MONOCYTES # (AUTO) 0.4 K/uL (0.0-1.0); MONOCYTES % (AUTO) 9.6 % (1.7-9.3); NEUTROPHILS # (AUTO) 3.2 K/uL (1.8-7.7); NEUTROPHILS % (AUTO) 68.1 % (40.0-70.0); PLATELET COUNT (AUTO) 187 K/uL (130-430); RED BLOOD CELL COUNT(AUTO) 3.88 MIL/uL (4.2-6.2)
[2019-09-15 05:21] LABS: ANION GAP 8 (5-15); CALCIUM 8.3 mg/dL (8.4-11.0); CHLORIDE 104 mmol/L (98-107); CREATININE 2.76 mg/dL (0.55-1.30); GLUCOSE 99 mg/dL (70-99); POTASSIUM 4.6 mmol/L (3.5-5.1); SODIUM SERUM 134 mmol/L (136-145); UREA NITROGEN, BLOOD 61 mg/dL (8-21)
[2019-09-15 05:26] LABS: ALANINE AMINOTRANSFERASE 18 U/L (12-78); ALBUMIN 2.7 g/dL (3.4-4.8); ASPARTATE AMINOTRANSFERASE 31 U/L (10-37); TOTAL BILIRUBIN 0.5 mg/dL (0.0-1.0)
[2019-09-15] MEDS: NACL 0.9% 1,000 ML IV SCH ×2 (07:53→13:56)
[2019-09-15 08:00] VITALS: BP_SYST 147
[2019-09-15 09:17] VITALS: BP_SYST 147
[2019-09-15 12:08] VITALS: BP_SYST 91
[2019-09-15 16:11] VITALS: BP_SYST 128
[2019-09-15 20:00] VITALS: BP_SYST 144
[2019-09-16] VITALS: BP_SYST 129
[2019-09-16] MEDS: NACL 0.9% 1,000 ML IV SCH ×3 (00:35→20:02)
[2019-09-16] MEDS ORDERED: MINERAL OIL 133 ML ENEMA RC SCH (05:45)
[2019-09-16] MEDS ORDERED: ACETAMINOPHEN 325 MG TABLET PO SCH (05:45)
[2019-09-16] MEDS ORDERED: BISACODYL 10 MG/SUPPOSITORY RC PRN (05:45)
[2019-09-16] MEDS ORDERED: MILK OF MAGNESIA 30 ML UDC PO PRN (05:45)
[2019-09-16] MEDS ORDERED: ACETAMINOPHEN 325 MG TABLET PO PRN (05:49)
[2019-09-16] MEDS ORDERED: cefTRIAXone 1 GM in D5W 50 ML IV SCH (06:15)
[2019-09-16] MEDS: cefTRIAXone 1 GM in D5W 50 ML IV SCH (08:33)
[2019-09-16] MEDS: TAMSULOSIN HCL 0.4 MG CAP PO SCH (08:34)
[2019-09-16] MEDS: FERROUS SULFATE 325 MG TABLET.DR PO SCH ×2 (08:34→20:02)
[2019-09-16] MEDS: PANTOPRAZOLE SODIUM 40 MG/VIAL (PROTONIX) IVP SCH (08:34)
[2019-09-16] MEDS: ASPIRIN 81 MG TABLET(ECOTRIN) PO SCH (08:34)
[2019-09-16] MEDS: AMIODARONE HCL 200 MG TABLET PO SCH (08:34)
[2019-09-16 08:35] VITALS: BP_SYST 141
[2019-09-16] MEDS: CALCIUM CARBONATE/VITAMIN D3 1 TAB TABLET PO SCH (08:35)
[2019-09-16] MEDS ORDERED: PANTOPRAZOLE SODIUM 40 MG TAB PO SCH (09:00)
[2019-09-16] MEDS: RIVASTIGMINE 9.5 MG/24 HR PATCH.TD24 TD SCH (09:00)
[2019-09-16] MEDS ORDERED: LOSARTAN POTASSIUM 25 MG TABLET PO SCH (09:00)
[2019-09-16 12:00] VITALS: BP_SYST 128
[2019-09-16] MEDS ORDERED: amLODIPine BESYLATE 5 MG TABLET PO ONE (16:00)
[2019-09-16 16:26] VITALS: BP_SYST 145
[2019-09-16] MEDS: MIRTAZAPINE 15 MG TABLET PO SCH (20:02)
[2019-09-16 20:56] VITALS: BP_SYST 142
[2019-09-17] VITALS: BP_SYST 154
[2019-09-17] MEDS: NACL 0.9% 1,000 ML IV SCH ×2 (05:47→17:34)
[2019-09-17 07:57] LABS: BASOPHILS % (AUTO) 0.5 % (0.0-2.0); EOSINOPHILS % (AUTO) 0.9 % (0.0-4.0); HEMATOCRIT 33.5 % (36-54); HEMOGLOBIN 11.2 g/dL (14.0-18.0); LYMPHOCYTES # (AUTO) 1.1 K/uL (1.0-5.5); LYMPHOCYTES % (AUTO) 27.7 % (20.5-51.5); MEAN CORPUSCULAR HEMOGLOBIN 32 pg (27-31); MEAN CORPUSCULAR HGB CONC 34 % (32-36); MEAN CORPUSCULAR VOLUME 94 fL (79.0-98.0); MONOCYTES # (AUTO) 0.3 K/uL (0.0-1.0); MONOCYTES % (AUTO) 8.4 % (1.7-9.3); NEUTROPHILS # (AUTO) 2.4 K/uL (1.8-7.7); NEUTROPHILS % (AUTO) 62.5 % (40.0-70.0); PLATELET COUNT (AUTO) 171 K/uL (130-430); RED BLOOD CELL COUNT(AUTO) 3.56 MIL/uL (4.2-6.2); RED CELL DISTRIBUTION WIDTH 13.9 % (9.0-15.0); WHITE BLOOD COUNT (AUTO) 3.9 K/uL (4.8-10.8)
[2019-09-17 08:00] VITALS: BP_SYST 158
[2019-09-17 08:16] LABS: ANION GAP 10 (5-15); CALCIUM 7.8 mg/dL (8.4-11.0); CHLORIDE 113 mmol/L (98-107); CREATININE 1.55 mg/dL (0.55-1.30); GLUCOSE 78 mg/dL (70-99); PHOSPHORUS 2.5 mg/dL (2.7-4.5); POTASSIUM 4.2 mmol/L (3.5-5.1); SODIUM SERUM 143 mmol/L (136-145); UREA NITROGEN, BLOOD 35 mg/dL (8-21)
[2019-09-17] MEDS ORDERED: amLODIPine BESYLATE 5 MG TABLET PO SCH (09:00)
[2019-09-17] MEDS: RIVASTIGMINE 9.5 MG/24 HR PATCH.TD24 TD SCH (09:00)
[2019-09-17] MEDS: PANTOPRAZOLE SODIUM 40 MG/VIAL (PROTONIX) IVP SCH (10:08)
[2019-09-17] MEDS: AMIODARONE HCL 200 MG TABLET PO SCH (10:09)
[2019-09-17] MEDS: ASPIRIN 81 MG TABLET(ECOTRIN) PO SCH (10:09)
[2019-09-17] MEDS: FERROUS SULFATE 325 MG TABLET.DR PO SCH ×2 (10:09→20:44)
[2019-09-17] MEDS: TAMSULOSIN HCL 0.4 MG CAP PO SCH (10:10)
[2019-09-17] MEDS: cefTRIAXone 1 GM in D5W 50 ML IV SCH (10:10)
[2019-09-17] MEDS: CALCIUM CARBONATE/VITAMIN D3 1 TAB TABLET PO SCH (10:10)
[2019-09-17 12:00] VITALS: BP_SYST 158
[2019-09-17 16:00] VITALS: BP_SYST 116
[2019-09-17 19:00] VITALS: BP_SYST 141
[2019-09-17 20:00] VITALS: BP_SYST 141
[2019-09-17] MEDS: MIRTAZAPINE 15 MG TABLET PO SCH (20:44)
[2019-09-18] VITALS: BP_SYST 125
[2019-09-18 01:54] LABS: URINE SODIUM, RANDOM 114 mmol/L (40-220)
[2019-09-18 04:00] VITALS: BP_SYST 132
[2019-09-18 06:56] LABS: BASOPHILS % (AUTO) 0.6 % (0.0-2.0); EOSINOPHILS % (AUTO) 0.5 % (0.0-4.0); HEMATOCRIT 34.4 % (36-54); HEMOGLOBIN 11.4 g/dL (14.0-18.0); LYMPHOCYTES % (AUTO) 20.3 % (20.5-51.5); MEAN CORPUSCULAR HEMOGLOBIN 31 pg (27-31); MEAN CORPUSCULAR HGB CONC 33 % (32-36); MEAN CORPUSCULAR VOLUME 94 fL (79.0-98.0); MONOCYTES # (AUTO) 0.3 K/uL (0.0-1.0); MONOCYTES % (AUTO) 6.9 % (1.7-9.3); NEUTROPHILS # (AUTO) 3.4 K/uL (1.8-7.7); NEUTROPHILS % (AUTO) 71.7 % (40.0-70.0); PLATELET COUNT (AUTO) 176 K/uL (130-430); RED BLOOD CELL COUNT(AUTO) 3.67 MIL/uL (4.2-6.2); RED CELL DISTRIBUTION WIDTH 13.9 % (9.0-15.0); WHITE BLOOD COUNT (AUTO) 4.7 K/uL (4.8-10.8)
[2019-09-18 08:06] LABS: ANION GAP 10 (5-15); CHLORIDE 114 mmol/L (98-107); CREATININE 1.48 mg/dL (0.55-1.30); GLUCOSE 84 mg/dL (70-99); POTASSIUM 4.3 mmol/L (3.5-5.1); SODIUM SERUM 145 mmol/L (136-145); UREA NITROGEN, BLOOD 29 mg/dL (8-21)
[2019-09-18 08:15] VITALS: BP_SYST 146
[2019-09-18] MEDS: NACL 0.9% 1,000 ML IV SCH (08:20)
[2019-09-18] MEDS: RIVASTIGMINE 9.5 MG/24 HR PATCH.TD24 TD SCH (09:00)
[2019-09-18] MEDS ORDERED: amLODIPine BESYLATE 5 MG TABLET PO SCH (09:00)
[2019-09-18] MEDS: cefTRIAXone 1 GM in D5W 50 ML IV SCH (10:18)
[2019-09-18] MEDS: TAMSULOSIN HCL 0.4 MG CAP PO SCH (10:19)
[2019-09-18] MEDS: FERROUS SULFATE 325 MG TABLET.DR PO SCH (10:19)
[2019-09-18] MEDS: CALCIUM CARBONATE/VITAMIN D3 1 TAB TABLET PO SCH (10:19)
[2019-09-18] MEDS: ASPIRIN 81 MG TABLET(ECOTRIN) PO SCH (10:19)
[2019-09-18] MEDS: PANTOPRAZOLE SODIUM 40 MG/VIAL (PROTONIX) IVP SCH (10:19)
[2019-09-18] MEDS: AMIODARONE HCL 200 MG TABLET PO SCH (10:19)
[2019-09-18 12:38] VITALS: BP_SYST 139
[2019-09-18 14:57] VITALS: BP_SYST 130
[2019-09-18 16:55] VITALS: BP_SYST 130
[2019-09-19 11:29] LABS: CREATININE, URINE 58.2 mg/dL; MICROALBUMIN URINE RANDOM 16.3 ug/ml (NOT ESTABLISHED)
== END 2019-09-18 18:55 | DRG 871 ==
LOC: SED 00:12 → EEVIPCON 04:18 → STU 04:18
PROVIDERS: ADMIT Internal Medicine Infectious Disease; ATTEND Internal Medicine Infectious Disease
DX: A41.9 Sepsis, unspecified organism (principal); E43 Unspecified severe protein-calorie malnutrition; G92 Toxic encephalopathy; U07.1 COVID-19; N12 Tubulo-interstitial nephritis, not specified as acute or chronic; I48.20 Chronic atrial fibrillation, unspecified; I69.354 Hemiplegia and hemiparesis following cerebral infarction affecting left non-dominant side; N17.9 Acute kidney failure, unspecified; F03.90 Unspecified dementia, unspecified severity, without behavioral disturbance, psychotic disturbance, mood disturbance, and anxiety; F32.9 Major depressive disorder, single episode, unspecified; I10 Essential (primary) hypertension; I25.10 Atherosclerotic heart disease of native coronary artery without angina pectoris; J44.9 Chronic obstructive pulmonary disease, unspecified; D63.8 Anemia in other chronic diseases classified elsewhere; Z96.652 Presence of left artificial knee joint; K21.0 Gastro-esophageal reflux disease with esophagitis; N40.0 Benign prostatic hyperplasia without lower urinary tract symptoms; R65.20 Severe sepsis without septic shock; Z85.038 Personal history of other malignant neoplasm of large intestine; Z85.46 Personal history of malignant neoplasm of prostate; Z87.11 Personal history of peptic ulcer disease; Z68.27 Body mass index [BMI] 27.0-27.9, adult; Z79.82 Long term (current) use of aspirin; Z79.899 Other long term (current) drug therapy
CPT/HCPCS: 36415; 70450-TC; 71045; 80048; 80053; 80307; 81000-TC; 82043; 82140-TC; 82570; 82570-TC; 82962; 83605; 83735-TC; 84100-TC; 84302-TC; 84484; 85025; 85610-TC; 85730-TC; 87040-TC; 87081; 87086; 87186-TC; 93005; 96365; 99285; C9113; G0378; G0480; G0481; G0482; J0696; J7030; J7060

== ENCOUNTER 2020-03-18 19:08 | Inpatient (IN) | payer OTHER, MEDICAID, SELFPAY ==
[~2020-03-18] VITALS: Ht 172.7 cm; Wt 74.8 kg
[~2020-03-18 19:08] MED LIST changes: -ACET-2165 PO; +ACET325T PO; -ASPI-1153 PO; +ASPI-1393 PO; -AZIT500T3 PO; -DILT240C91 PO; +FLEETMO RC; -MULT-1117
[2020-03-18 19:10] VITALS: BP_SYST 105
--- NOTE | 2020-03-18 19:15 | NUR ---
Placed in room 7 . Placed on community relations police lieutenant, blood pressure machine and pulse oximeter. To gown for exam. Side rails up. Report given to Venita MAR.
--- NOTE | 2020-03-18 19:20 | NUR ---
Pt biba from [facility] for abnormal labs-elevated BUN and increased confusion. Pt is non verbal, responsive to painful stimulus. Pt has multiple skin tears, open blister and open scab to L foot and R foot discoloration. Pt b/l legs are contracted. HX of BPH, COPD, ANEMIA, and HTN. No known allergies reported.
--- NOTE | 2020-03-18 19:21 | NUR ---
ER at bedside examining patient.
--- NOTE | 2020-03-18 19:23 | NUR ---
Patient's code status is DNR paperwork completed and placed in chart. POLST form copy provided by [facility].
[2020-03-18] MEDS ORDERED: NACL 0.9% 1,000 ML IV ONE (19:45)
[2020-03-18 20:18] LABS: BASOPHILS # (AUTO) 0.1 K/uL (0.0-0.2); BASOPHILS % (AUTO) 0.8 % (0.0-2.0); EOSINOPHILS # (AUTO) 0.3 K/uL (0.0-0.4); EOSINOPHILS % (AUTO) 2.1 % (0.0-4.0); HEMATOCRIT 39.2 % (36-54); HEMOGLOBIN 12.6 g/dL (14.0-18.0); LYMPHOCYTES # (AUTO) 1.5 K/uL (1.0-5.5); LYMPHOCYTES % (AUTO) 12.3 % (20.5-51.5); MEAN CORPUSCULAR HEMOGLOBIN 33 pg (27-31); MEAN CORPUSCULAR HGB CONC 32 % (32-36); MEAN CORPUSCULAR VOLUME 103 fL (79.0-98.0); MONOCYTES # (AUTO) 0.5 K/uL (0.0-1.0); MONOCYTES % (AUTO) 4.4 % (1.7-9.3); NEUTROPHILS # (AUTO) 9.9 K/uL (1.8-7.7); NEUTROPHILS % (AUTO) 80.4 % (40.0-70.0); PLATELET COUNT (AUTO) 191 K/uL (130-430); RED BLOOD CELL COUNT(AUTO) 3.81 MIL/uL (4.2-6.2); RED CELL DISTRIBUTION WIDTH 14.6 % (9.0-15.0); WHITE BLOOD COUNT (AUTO) 12.3 K/uL (4.8-10.8)
[2020-03-18 20:27] LABS: ANION GAP 9 (5-15); CALCIUM 8.8 mg/dL (8.4-11.0); CREATININE 2.97 mg/dL (0.55-1.30); GLUCOSE 195 mg/dL (70-99); POTASSIUM 4.7 mmol/L (3.5-5.1); UREA NITROGEN, BLOOD 76 mg/dL (8-21)
[2020-03-18 20:33] LABS: ALANINE AMINOTRANSFERASE 52 U/L (12-78); ALBUMIN 2.5 g/dL (3.4-4.8); ASPARTATE AMINOTRANSFERASE 51 U/L (10-37); TOTAL BILIRUBIN 0.5 mg/dL (0.0-1.0)
--- NOTE | 2020-03-18 20:43 | NUR ---
Critical value SODIUM 154 AND CHLORIDE 120. NOTIFIED
[2020-03-18 20:46] LABS: CHLORIDE 120 mmol/L (98-107)
[2020-03-18 20:49] LABS: SODIUM SERUM 154 mmol/L (136-145)
[2020-03-18 20:53] LABS: CLARITY/URINE TURBID (CLEAR); COLOR,URINE YELLOW (YELLOW)
[2020-03-18 20:54] LABS: BILIRUBIN,URINE NEGATIVE (NEGATIVE); BLOOD, URINE NEGATIVE (NEGATIVE); GLUCOSE,URINE NEGATIVE (NEGATIVE); KETONES,URINE TRACE (NEGATIVE); LEUKOCYTE ESTERASE ,URINE 2+ (NEGATIVE); NITRITE, URINE NEGATIVE (NEGATIVE); PH,URINE 5.5 (5.0-8.0); PROTEIN URINE TRACE (NEGATIVE)
[2020-03-18] MEDS ORDERED: 0.45% NACL 1,000 ML IV ONE (21:00)
[2020-03-18] MEDS ORDERED: 0.45% NACL 500 ML IV ONE (21:00)
[2020-03-18] MEDS ORDERED: cefTRIAXone 1 GM IVPB PREMIX 50 ML IV ONE (21:00)
--- NOTE | 2020-03-18 21:00 | NUR ---
Lab called to draw blood cultures.
--- NOTE | 2020-03-18 21:00 | NUR ---
NS 0.[address] DUMONT
--- NOTE | 2020-03-18 21:05 | NUR ---
Patient will be admitted to care of Dr Hooper. Admitted to tele unit. Will be ED- TELE HOLD. Complete and up to date summary report printed. Admit orders entetred by Taurus MAR.
[2020-03-18 21:07] LABS: BACTERIA,URINE MANY /HPF (None Seen); RBC,URINE 0-3 /HPF (0-3)
[2020-03-18 21:08] LABS: MUCUS,URINE 1+ /LPF (None Seen); URINE AMORPHOUS URATE 3+ /HPF (None Seen)
[2020-03-18] MEDS ORDERED: AMIN30LI2 PO (21:08)
[2020-03-18] MEDS ORDERED: ASCO500T20 PO (21:08)
[2020-03-18] MEDS ORDERED: MEGE20TA6 PO (21:08)
[2020-03-18] MEDS ORDERED: OYSTER SHELL PO (21:08)
[2020-03-18] MEDS ORDERED: ZINC50TA69 PO (21:08)
[2020-03-18] MEDS ORDERED: FOLI-43 PO (21:08)
[2020-03-18] MEDS ORDERED: MULT-1089 PO (21:08)
--- NOTE | 2020-03-18 21:09 | NUR ---
Medication reconciliation completed with information provided by [facility]. Any prior medication reconciliation on file was reviewed and corrected.
--- NOTE | 2020-03-18 21:11 | NUR ---
MRSA AND HARITHA SENT TO LAB
[2020-03-18] MEDS: 0.45% NACL 1,000 ML IV SCH (22:04)
[2020-03-18 23:05] VITALS: BP_SYST 112
--- NOTE | 2020-03-18 23:05 | NUR ---
Admission Note Received patient from ER with diagnosis of acute kidney injury. Initial Plan of Care discussed-patient nonverbal. Oriented to room, call light, pain management and safety.
[2020-03-19] VITALS: BP_SYST 112
--- NOTE | 2020-03-19 01:00 | NUR ---
RN ROUNDS: Patient is laying in bed with no s/s of distress or discomfort. He appears to be asleep. Will continue to monitor. Bed is in the lowest position, call light within reach and alarm on.
--- NOTE | 2020-03-19 03:00 | NUR ---
RN ROUNDS: Patient is laying in bed, in stable condition. Will continue to monitor.
--- NOTE | 2020-03-19 04:47 | NUR ---
PAGED FOR CONSULT RICHI PISANO REASON FOR CONSULT: IRINEO ORDERING PHYSICIAN: DR. MERCADO DIALED: [phone] SPOKE TO: LILIAM
--- NOTE | 2020-03-19 04:49 | NUR ---
PAGED FOR CONSULT KESHIA CURRY REASON FOR CONSULT: ELEVATED WBC ORDERING PHYSICIAN: DR. MERCADO DIALED: [phone] SPOKE TO: ESTUARDO
--- NOTE | 2020-03-19 05:00 | NUR ---
RN ROUNDS: Patient is laying in bed with no s/s of distress or discomfort. He has unlabored breathing on room air. Bed is in the lowest position with alarm on, call light within reach. Will continue to monitor.
[2020-03-19] MEDS: 0.45% NACL 1,000 ML IV SCH ×3 (05:05→20:38)
[2020-03-19 06:18] LABS: BASOPHILS # (AUTO) 0.1 K/uL (0.0-0.2); BASOPHILS % (AUTO) 0.5 % (0.0-2.0); EOSINOPHILS # (AUTO) 0.2 K/uL (0.0-0.4); EOSINOPHILS % (AUTO) 1.7 % (0.0-4.0); HEMOGLOBIN 12.1 g/dL (14.0-18.0); LYMPHOCYTES # (AUTO) 1.4 K/uL (1.0-5.5); LYMPHOCYTES % (AUTO) 10.5 % (20.5-51.5); MEAN CORPUSCULAR HEMOGLOBIN 33 pg (27-31); MEAN CORPUSCULAR HGB CONC 33 % (32-36); MEAN CORPUSCULAR VOLUME 101 fL (79.0-98.0); MONOCYTES # (AUTO) 0.8 K/uL (0.0-1.0); MONOCYTES % (AUTO) 5.9 % (1.7-9.3); NEUTROPHILS # (AUTO) 10.7 K/uL (1.8-7.7); NEUTROPHILS % (AUTO) 81.4 % (40.0-70.0); PLATELET COUNT (AUTO) 186 K/uL (130-430); RED BLOOD CELL COUNT(AUTO) 3.68 MIL/uL (4.2-6.2); RED CELL DISTRIBUTION WIDTH 14.3 % (9.0-15.0); WHITE BLOOD COUNT (AUTO) 13.1 K/uL (4.8-10.8)
[2020-03-19 07:11] LABS: ALANINE AMINOTRANSFERASE 59 U/L (12-78); ALBUMIN 2.2 g/dL (3.4-4.8); ANION GAP 11 (5-15); ASPARTATE AMINOTRANSFERASE 60 U/L (10-37); CALCIUM 8.3 mg/dL (8.4-11.0); CHLORIDE 119 mmol/L (98-107); CREATININE 2.54 mg/dL (0.55-1.30); GLUCOSE 119 mg/dL (70-99); POTASSIUM 4.1 mmol/L (3.5-5.1); SODIUM SERUM 150 mmol/L (136-145); THYROID STIMULATING HORMONE 2.23 uIu/mL (0.36-3.74); TOTAL BILIRUBIN 0.5 mg/dL (0.0-1.0); UREA NITROGEN, BLOOD 69 mg/dL (8-21)
--- NOTE | 2020-03-19 07:33 | NUR ---
CLOSING NOTES: Patient is laying in bed and appears to be asleep. He is in stable condition, on tele. Patient's IV is patent and intact on left hand. He has unlabored breathing on room air. All needs were met throughout shift. Ensured all safety precautions. Bed is locked and in the lowest position. Have endorsed care to dayshift nurse.
[2020-03-19 07:48] VITALS: BP_SYST 101
--- NOTE | 2020-03-19 07:53 | NUR ---
am notes pt in bed. a/ox1. no s/sof pian or distress. pt vomitted x1 large yellow color liquid. iv left hand#22 patent. .ivf infusing well. safety/fall precautions in place.bed locked and in low position. bed alarm on. call light within reach.will conitnue to monitor
[2020-03-19 08:09] LABS: TRIGLYCERIDES 106 mg/dL (30-150)
[2020-03-19 08:10] LABS: CHOLESTEROL 148 mg/dL (<200); HDL CHOLESTEROL 40 mg/dL (>45); LDL CHOLESTEROL 91 mg/dL (<100)
--- NOTE | 2020-03-19 08:58 | NUR ---
Nutrition Update Guilherme scale 11 noted. Pt admitted for Acute kidney injury/Hypernatremia/UTI Diet: Renal Standard Diet BMI: 25.0 kg/m2 RD to follow per nutrition care standards.
[2020-03-19] MEDS: cefTRIAXone 1 GM IVPB PREMIX 50 ML IV SCH (09:18)
[2020-03-19 12:14] VITALS: BP_SYST 102
--- NOTE | 2020-03-19 12:38 | NUR ---
rounds pt stable notin acute distress. ivf infusing well. pt cleaned and linen changed.hob elevated. no s/s of distress noted.
--- NOTE | 2020-03-19 14:30 | NUR ---
md visit seen by dr madera . new order received. dr madera sopke to daughter michelle. pt stable not in acute distress. will continue to monitor
[2020-03-19] MEDS ORDERED: DEXTROSE 50% JECT 50 ML DISP.SYRIN IVP PRN (14:45)
[2020-03-19] MEDS ORDERED: D5W 1,000 ML IV PRN (14:45)
[2020-03-19] MEDS ORDERED: INSULIN REGULAR, HUMAN 100 UNITS/ML, 10 ML VIAL (humuLIN R) SUBCUT PRN (14:45)
[2020-03-19] MEDS ORDERED: GLUCOSE (DEXTROSE) ORAL GEL -Adults PO PRN (14:45)
--- NOTE | 2020-03-19 14:45 | NUR ---
WOUND EVALUATION: Wound Consult received from Dr. Wallace. Thank you, Dr. Wallace, for the consult. Patient received in a [place] Bed with an Atmos-Air 9000 mattress, awake, non-verbal, non-responsive to verbal commands. Patient is unable to turn in bed independently. Guilherme Score is an 11. Past Medical History: CVA, Acute Kidney Injury, Dementia. Recent Labs: WBC 13.1, RBC 3.68, hemoglobin 12.1, hematocrit 37.0, sodium 150, chloride 119, BUN 69, creatinine 2.54, glucose 119, calcium 8.3, AST 60, albumin 2.2, D-dimer 3650. Microbiology: Blood culture results x2 in progress. MRSA screen results in progress. Urine culture results in progress. Intrinsic factors that delay wound healing: Acute Kidney Injury, Hypoalbuminemia, Hyperglycemia. Extrinsic factors that delay wound healing: Immobility. Wound Assessment: 1. Left Medial Heel: DTI, present on admission. Involved area has dark discoloration underneath trujillo skin. No odor, no drainage. Surrounding tissue has blanchable red erythema. Site measures 3.0 cm x 3.0 cm. 2. Left lateral Heel: DTI, present on admission. Involved area has dark discoloration under the skin. No odor, no drainage. Surrounding tissue has blanchable red erythema. Site measures 3.7 cm x 3.4 cm. 3. Left Lateral Mid Foot: DTI, present on admission. Involved area has dark discoloration under the skin. No odor, no drainage. Surrounding tissue has blanchable red erythema. Site measures 2.2 cm x 2.0 cm. 4. Left Lateral Fifth Metatarsal Head: DTI, present on admission. Involved area has dark discoloration under the skin. No odor, no drainage. Site measures 0.5 cm x 0.6 cm. Recommend: Cover sites with foam dressings. Place foot into heel lift boot. Check heel lift boot during hourly rounds to ensure that heel and lateral above foot are freely floating. 5. Left Lateral Christopher: Scab, present on admission. Scab has 90% brown color, 10% light brown color. No odor, no drainage. Dry, stable. Scab measures 1.5 cm x 1.4 cm. Recommend: No dressing needed. Continue to monitor site every shift. 6. Right Lateral Malleolus: Unstageable pressure ulcer, present on admission. Wound bed has 100% brown eschar. No odor, no drainage. Periwound intact. Wound measures 2.7 cm x 2.6 cm. 7. Right Anterior/Dorsal Ankle Joint Line: Area of dark purple ecchymosis, present on admission. No odor, no drainage. 8. Right Distal Anterior Christopher, superior to site 7: Area of dark purple ecchymosis, present on admission. No odor, no drainage. 9. Right Proximal Lateral Christopher, inferior to Knee: Black scab, present on admission. No odor, no drainage. Periwound intact. Dry, stable. Scab measures 0.7 cm x 0.6 cm. Recommend: No dressings needed. Continue to monitor sites every shift. 10. Coccygeal area: Area of dark discoloration under the skin, present on admission. Possible old DTI site. Site measures 1.8 cm x 6.0 cm. Recommend: Cover site with Sacral foam dressing. Perform site care daily, and as needed for dressing soiling or dislodgement. 11. Right Dorsal Hand: Chronic dry laceration, present on admission. Site has 100% dull pink tissue. No odor, no drainage. Periwound intact. Site measures 2.4 cm x 0.3 cm. Recommend: Cleanse wound with normal saline. Apply moisture barrier cream to wound. Cover with foam dressing. Perform wound care daily, and as needed for dressing soiling or dislodgement. Also recommend: Reposition patient side to side only every 2 hours with pillow support and off-load pressure areas with pillows for pressure re-distribution. Offload, elevate and float bilateral calves with pillows and bilateral heels with heel lift boots. Perform skin care and monitor skin integrity Q shift. Use moisture barrier cream on buttocks and other moisture susceptible areas QID and as needed for soiling. Place patient on a low air-loss mattress.
[2020-03-19 16:14] VITALS: BP_SYST 113
--- NOTE | 2020-03-19 16:15 | NUR ---
WHEAT CATH: # 16 FR Wheat catheter with 10 cc bulb inserted with use of sterile technique. Bulb inflated with 10 cc sterile water. Immediate return of 50 urine noted. Bedside drainage bag placed below level of bladder.secured. Urine sample collected and sent to lab at 1640. Pt tolerated procedure well.
[2020-03-19] MEDS ORDERED: ACETAMINOPHEN 325 MG TABLET PO PRN (17:00)
[2020-03-19] MEDS ORDERED: LOSARTAN POTASSIUM 25 MG TABLET PO ONE (17:00)
[2020-03-19] MEDS ORDERED: FOLIC ACID 1 MG TABLET PO ONE (17:00)
[2020-03-19] MEDS ORDERED: NON-FORMULARY MEDICATION (Amino Acids/Protein Hydrolys (Pro-Stat Liquid) 30 ML) PO SCH (17:00)
[2020-03-19] MEDS ORDERED: ASCORBIC ACID 500 MG TABLET PO ONE (17:00)
[2020-03-19] MEDS ORDERED: ASPIRIN 81 MG TABLET(ECOTRIN) PO ONE (17:00)
[2020-03-19] MEDS ORDERED: MINERAL OIL 133 ML ENEMA RC SCH (17:00)
[2020-03-19] MEDS ORDERED: TAMSULOSIN HCL 0.4 MG CAP PO ONE (17:00)
[2020-03-19] MEDS ORDERED: MILK OF MAGNESIA 30 ML UDC PO SCH (17:00)
[2020-03-19] MEDS ORDERED: MULTIVITAMINS TAB 1 TABLET PO ONE (17:00)
[2020-03-19] MEDS ORDERED: BISACODYL 10 MG/SUPPOSITORY RC PRN (17:00)
[2020-03-19] MEDS ORDERED: AMIODARONE HCL 200 MG TABLET PO ONE (17:00)
--- NOTE | 2020-03-19 17:15 | NUR ---
CONSULTATION CALLED REASON FOR CONSULTATION:HIGH D DIMER, COPD WAS CONSULT CALLED?Y PERSON WHO WAS NOTIFIED:MICHELLE CONSULTING PHYSICIAN:HANNY LAWSON DESIGN MAINTENANCE ENGINEER SPECIALTY:PULMONARY DESIGN MAINTENANCE ENGINEER PHONE NUMBER:[phone] REQUESTING PHYSICIAN:JARAD FUENTES
--- NOTE | 2020-03-19 18:04 | NUR ---
CALLED DR SMITH CALLED FOR CONSULT.NEW ORDER RECEIVED
--- NOTE | 2020-03-19 18:59 | NUR ---
closing notes pt stable notin acute distress. ivf infusing well..hob elevated. no s/s of distress noted.safety and fall precautions in place. call light within reach.
--- NOTE | 2020-03-19 19:30 | NUR ---
OPENING NOTES RECEIVED REPORT FROM DAY SHIFT RN. PT RESTING IN BED, ALERT & ORIENTED X1. BREATHING EVEN AND UNLABORED TO ROOM AIR. NO SIGNS OF RESPIRATORY DISTRESS NOTED. IV ON LEFT HAND 22G INTACT, IVF RUNNING ORDERED RATE. NO SIGNS OF INFILTRATION NOTED. CALL LIGHT WITHIN REACH. SIDE RAILS UP X3. BED ALARM ON, LOCKED IN LOWEST POSITION. SAFETY AND FALL PRECAUTIONS MAINTAINED. WILL CONTINUE TO MONITOR.
[2020-03-19 20:00] VITALS: BP_SYST 118
[2020-03-19] MEDS: FERROUS SULFATE 325 MG TABLET.DR PO SCH (20:51)
[2020-03-19] MEDS: MIRTAZAPINE 15 MG TABLET PO SCH (20:52)
--- NOTE | 2020-03-19 20:57 | NUR ---
MEDICATION PASS SCHEDULED MEDICATIONS ADMINISTERED. DISCUSSED MEDICATIONS ACTION AND POTENTIAL SIDE EFFECTS, BUT PT CONFUSED. CRUSHED MEDS AND MIXED WITH APPLESAUCE. PT SWALLOWED WITHOUT ANY DIFFICULTY. BREATHING EVEN AND UNLABORED TO ROOM AIR. IVF RUNNING ORDERED RATE. PT TOLERATING WELL. CALL LIGHT WITHIN REACH. BED ALARM ON, LOCKED IN LOWEST POSITION. CLOSE TO NURSING STATION. SAFETY AND FALL PRECAUTIONS MAINTAINED. WILL CONTINUE TO MONITOR.
--- NOTE | 2020-03-19 23:35 | NUR ---
RN ROUNDS PT SLEEPING. CHEST RISE AND FALL SYMMETRICAL. NO SIGNS OF RESPIRATORY DISTRESS NOTED. NO S/S OF ACUTE DISTRESS NOTED. WHEAT CATHETER INTACT, DRAINING BY GRAVITY. CALL LIGHT WITHIN REACH. SIDE RAILS UP X3. BED ALARM ON, LOCKED IN LOWEST LEVEL. SAFETY AND FALL PRECAUTIONS MAINTAINED. WILL CONTINUE TO MONITOR.
[2020-03-20] VITALS (7 sets, daily range): BP systolic 85–133
[2020-03-20] MEDS: 0.45% NACL 1,000 ML IV SCH ×4 (03:14→23:04)
--- NOTE | 2020-03-20 06:40 | NUR ---
RECEIVED ABGs RESULT FROM RT. WILL ENDORSE TO ONCOMING DAY SHIFT RN.
--- NOTE | 2020-03-20 06:52 | NUR ---
CLOSING NOTES PT RESTING IN BED. BREATHING EVEN AND UNLABORED TO ROOM AIR. NO SIGNS OF RESPIRATORY DISTRESS NOTED. IV ON LEFT HAND 22G INTACT, IVF RUNNING ORDERED RATE. NO SIGNS OF INFILTRATION NOTED. CALL LIGHT WITHIN REACH. SIDE RAILS UP X3. BED ALARM ON, LOCKED IN LOWEST POSITION. SAFETY AND FALL PRECAUTIONS MAINTAINED. ALL NEEDS ARE MET THROUGHOUT SHIFT. WILL CONTINUE TO MONITOR UNTIL ENDORSE TO DAY SHIFT RN.
[2020-03-20 06:59] LABS: BASOPHILS % (AUTO) 0.3 % (0.0-2.0); EOSINOPHILS # (AUTO) 0.2 K/uL (0.0-0.4); EOSINOPHILS % (AUTO) 1.9 % (0.0-4.0); HEMOGLOBIN 9.8 g/dL (14.0-18.0); LYMPHOCYTES # (AUTO) 1.5 K/uL (1.0-5.5); LYMPHOCYTES % (AUTO) 13.1 % (20.5-51.5); MEAN CORPUSCULAR HEMOGLOBIN 33 pg (27-31); MEAN CORPUSCULAR HGB CONC 33 % (32-36); MEAN CORPUSCULAR VOLUME 102 fL (79.0-98.0); MONOCYTES # (AUTO) 0.5 K/uL (0.0-1.0); MONOCYTES % (AUTO) 4.3 % (1.7-9.3); NEUTROPHILS # (AUTO) 9.4 K/uL (1.8-7.7); NEUTROPHILS % (AUTO) 80.4 % (40.0-70.0); PLATELET COUNT (AUTO) 160 K/uL (130-430); RED BLOOD CELL COUNT(AUTO) 2.95 MIL/uL (4.2-6.2); RED CELL DISTRIBUTION WIDTH 13.9 % (9.0-15.0); WHITE BLOOD COUNT (AUTO) 11.8 K/uL (4.8-10.8)
[2020-03-20 07:19] LABS: ALANINE AMINOTRANSFERASE 48 U/L (12-78); ALBUMIN 1.9 g/dL (3.4-4.8); ANION GAP 9 (5-15); ASPARTATE AMINOTRANSFERASE 47 U/L (10-37); CALCIUM 7.7 mg/dL (8.4-11.0); CHLORIDE 116 mmol/L (98-107); CREATININE 2.29 mg/dL (0.55-1.30); GLUCOSE 88 mg/dL (70-99); LACTATE DEHYDROGENASE 321 U/L (85-227); PHOSPHORUS 3.3 mg/dL (2.7-4.5); POTASSIUM 4.1 mmol/L (3.5-5.1); SODIUM SERUM 146 mmol/L (136-145); TOTAL BILIRUBIN 0.7 mg/dL (0.0-1.0); UREA NITROGEN, BLOOD 63 mg/dL (8-21)
--- NOTE | 2020-03-20 08:00 | NUR ---
initial notes rec patient awake very confused. verbally responsive at times but in latvian. resp easy and unlabored. bed to the lowest position and side rails up and locked. call light within reached. will continue to monitor patient.
[2020-03-20 08:04] LABS: INR 1.2 (0.80-1.20); PROTHROMBIN TIME 12.1 SECS (9.5-12.5)
[2020-03-20 08:32] LABS: C-REACTIVE PROTEIN QUANT 15.8 mg/dL (0-0.5)
[2020-03-20] MEDS: LOSARTAN POTASSIUM 25 MG TABLET PO SCH (09:00)
[2020-03-20] MEDS: AMIODARONE HCL 200 MG TABLET PO SCH (09:00)
[2020-03-20] MEDS: RIVASTIGMINE 9.5 MG/24 HR PATCH.TD24 TD SCH (09:00)
[2020-03-20] MEDS: cefTRIAXone 1 GM IVPB PREMIX 50 ML IV SCH (10:00)
[2020-03-20] MEDS: ASCORBIC ACID 500 MG TABLET PO SCH (10:58)
[2020-03-20] MEDS: ASPIRIN 81 MG TABLET(ECOTRIN) PO SCH (10:58)
[2020-03-20] MEDS: FERROUS SULFATE 325 MG TABLET.DR PO SCH ×2 (10:58→21:38)
[2020-03-20] MEDS: MULTIVITAMINS TAB 1 TABLET PO SCH (10:58)
[2020-03-20] MEDS: TAMSULOSIN HCL 0.4 MG CAP PO SCH (10:58)
[2020-03-20] MEDS: FOLIC ACID 1 MG TABLET PO SCH (10:58)
[2020-03-20] MEDS: FAMOTIDINE 20 MG TABLET PO SCH (10:58)
--- NOTE | 2020-03-20 16:36 | NUR ---
ID MD DR JOSE J ABEBE WAS CALLED, RE: TO INFORM PT IS POSITIVE FOR MRSA OF THE NARES. SPOKE TO AVILA.
--- NOTE | 2020-03-20 17:00 | NUR ---
rounds seen by dr bourne and with orders. no sob noted.
[2020-03-20] MEDS ORDERED: ALBUMIN HUMAN 25% 100 ML IV PRN (17:15)
[2020-03-20] MEDS ORDERED: IPRATROPIUM/ALBUTEROL SULFATE 3 ML AMPUL.NEB (DUONEB) INH PRN (18:00)
--- NOTE | 2020-03-20 18:40 | NUR ---
closing notes no hypo hyperglycemic reaction noted. bed to the lowest position and side rails up and locked. bed close to the nurses station. resting comfortably .
--- NOTE | 2020-03-20 19:40 | NUR ---
Initial note: Received report from albina RN. Patient is awake, no acute distress. Tolerating room air. Even and unlabored breathing. IV fluids infusing well to left hand IV site. Hinds draining yellow urine to gravity. Call light is with patient. Safety, fall, contact iso precautions in place. Will continue with plan of care.
[2020-03-20] MEDS ORDERED: MUPIROCIN 1 GM OIN.PF.APP NS SCH (21:00)
[2020-03-20] MEDS: MIRTAZAPINE 15 MG TABLET PO SCH (21:37)
--- NOTE | 2020-03-21 00:29 | NUR ---
Rounds: Patient is resting comfortably in bed. No acute distress. Respirations even and unlabored on room air. IV fluids infusing well, no infiltration. Hinds draining well to gravity. Call light with patient. Will continue to monitor.
[2020-03-21 00:38] VITALS: BP_SYST 146
--- NOTE | 2020-03-21 04:00 | NUR ---
Wound care: Wound care done per MD order and nutrition specialist recommendations. Patient tolerated well.
[2020-03-21] MEDS: 0.45% NACL 1,000 ML IV SCH ×3 (05:53→18:58)
--- NOTE | 2020-03-21 06:44 | NUR ---
Closing note: Patient is awake, no acute distress. Tolerating room air. Even and unlabored breathing. IV fluids infusing well to left hand IV site, site is patent and benign. Hinds draining yellow urine to gravity. All needs met. Call light is with patient. Safety, fall, contact iso precautions observed. Will endorse care to dayshift RN.
[2020-03-21 07:09] LABS: BASOPHILS # (AUTO) 0.1 K/uL (0.0-0.2); BASOPHILS % (AUTO) 0.8 % (0.0-2.0); EOSINOPHILS # (AUTO) 0.4 K/uL (0.0-0.4); HEMATOCRIT 30.6 % (36-54); HEMOGLOBIN 10.2 g/dL (14.0-18.0); LYMPHOCYTES # (AUTO) 1.8 K/uL (1.0-5.5); MEAN CORPUSCULAR HEMOGLOBIN 34 pg (27-31); MEAN CORPUSCULAR HGB CONC 33 % (32-36); MEAN CORPUSCULAR VOLUME 101 fL (79.0-98.0); MONOCYTES # (AUTO) 0.5 K/uL (0.0-1.0); MONOCYTES % (AUTO) 4.7 % (1.7-9.3); NEUTROPHILS # (AUTO) 7.6 K/uL (1.8-7.7); NEUTROPHILS % (AUTO) 73.5 % (40.0-70.0); PLATELET COUNT (AUTO) 156 K/uL (130-430); RED BLOOD CELL COUNT(AUTO) 3.04 MIL/uL (4.2-6.2); RED CELL DISTRIBUTION WIDTH 14.1 % (9.0-15.0); WHITE BLOOD COUNT (AUTO) 10.4 K/uL (4.8-10.8)
[2020-03-21 07:25] LABS: ANION GAP 10 (5-15); CALCIUM 7.8 mg/dL (8.4-11.0); CHLORIDE 112 mmol/L (98-107); CREATININE 1.78 mg/dL (0.55-1.30); GLUCOSE 90 mg/dL (70-99); POTASSIUM 3.7 mmol/L (3.5-5.1); SODIUM SERUM 140 mmol/L (136-145); UREA NITROGEN, BLOOD 44 mg/dL (8-21)
[2020-03-21 08:00] VITALS: BP_SYST 97
--- NOTE | 2020-03-21 08:00 | NUR ---
initial notes rec patient awake and confused. ivf on the l hand infiltrated. restarted by a ava yap on the r hand. no infiltration noted. resp easy and unlabored. no sob noted. bd to the lowest position and side rails up and locked. call light within reached and patient close to the nurses station. will continue to monitor patient.
[2020-03-21] MEDS: MULTIVITAMINS TAB 1 TABLET PO SCH (08:33)
[2020-03-21] MEDS: FERROUS SULFATE 325 MG TABLET.DR PO SCH ×2 (08:33→20:53)
[2020-03-21] MEDS: ASPIRIN 81 MG TABLET(ECOTRIN) PO SCH (08:33)
[2020-03-21] MEDS: FAMOTIDINE 20 MG TABLET PO SCH (08:33)
[2020-03-21] MEDS: FOLIC ACID 1 MG TABLET PO SCH (08:33)
[2020-03-21] MEDS: cefTRIAXone 1 GM IVPB PREMIX 50 ML IV SCH (08:33)
[2020-03-21] MEDS: ASCORBIC ACID 500 MG TABLET PO SCH (08:34)
[2020-03-21] MEDS: TAMSULOSIN HCL 0.4 MG CAP PO SCH (08:34)
[2020-03-21] MEDS: LOSARTAN POTASSIUM 25 MG TABLET PO SCH (09:00)
[2020-03-21] MEDS: RIVASTIGMINE 9.5 MG/24 HR PATCH.TD24 TD SCH (09:00)
[2020-03-21] MEDS: AMIODARONE HCL 200 MG TABLET PO SCH (09:00)
--- NOTE | 2020-03-21 10:00 | NUR ---
rounds due meds were given and frank well. sleeps at intervals. turned repositioned for comfort.
[2020-03-21 11:28] VITALS: BP_SYST 112
--- NOTE | 2020-03-21 12:30 | NUR ---
rounds refused to eat luncj. bs was 67 and was given d 50 at bedside. no hypo hyperglycemic reaction noted. bed to the lowest position.
--- NOTE | 2020-03-21 12:50 | NUR ---
Dietitian Recommendations * Recommend renal, pureed diet w/ Nepro TID, Nehemias BID (supplements provide 1455 kcal/day, 62 gm protein/day) * Encourage increase PO intakes LP, RD Please refer to Nutrition Assessment for details. Addendum: 03/21/20 at [address] Amended: Links added.
--- NOTE | 2020-03-21 14:00 | NUR ---
rounds asleep at this time. turned repositioned for comfort. bed to the lowest psotion and side rails up and locked.
[2020-03-21 15:42] VITALS: BP_SYST 106
[2020-03-21] MEDS: MUPIROCIN 2% TOPICAL OINTMENT 22 GM NS SCH ×2 (15:50→20:53)
--- NOTE | 2020-03-21 16:00 | NUR ---
rounds pt was turned repositioned and wound care rendered. pt went back to sleep. resting comfortably.
--- NOTE | 2020-03-21 18:45 | NUR ---
closing notes asleep at thisitme. no hypo/hyperglycemic reaction noted. was turned repositioned for comfort. bed to the lowest psotion and side rails up and locked. call light within reached and patient close to the nurses station.
--- NOTE | 2020-03-21 19:51 | NUR ---
Initial note: Received report from albina RN. Patient is awake, no acute distress. Tolerating room air. Even and unlabored breathing. IV fluids infusing well to right hand IV site. Hinds draining yellow urine to gravity. Call light is with patient. Safety, fall, contact iso precautions in place. Will continue with plan of care.
[2020-03-21 20:00] VITALS: BP_SYST 123
[2020-03-21] MEDS: MIRTAZAPINE 15 MG TABLET PO SCH (20:53)
[2020-03-22] VITALS: BP_SYST 103; BP_SYST 152
[2020-03-22 01:08] LABS: FREE PSA <0.02 ng/mL; PROSTATE SPECIFIC AG TOTAL <0.1 ng/mL (0.0-4.0)
[2020-03-22] MEDS: 0.45% NACL 1,000 ML IV SCH ×4 (02:14→22:30)
--- NOTE | 2020-03-22 02:40 | NUR ---
IV RE-INSERTION: Previous IV site infiltrated. Restarted on left forearm. Successful after 2 attempts. Resumed current IVF of 1/2 NS and regulated @ 150 ML per hour. Will observe for any signs of infiltration.
--- NOTE | 2020-03-22 05:15 | NUR ---
Wound care: Wound care done per MD order and internet specialist recommendations. Patient tolerated well.
[2020-03-22 07:03] LABS: BASOPHILS # (AUTO) 0.1 K/uL (0.0-0.2); BASOPHILS % (AUTO) 0.7 % (0.0-2.0); EOSINOPHILS # (AUTO) 0.5 K/uL (0.0-0.4); HEMOGLOBIN 10.6 g/dL (14.0-18.0); LYMPHOCYTES # (AUTO) 1.5 K/uL (1.0-5.5); LYMPHOCYTES % (AUTO) 13.5 % (20.5-51.5); MEAN CORPUSCULAR HEMOGLOBIN 34 pg (27-31); MEAN CORPUSCULAR HGB CONC 34 % (32-36); MEAN CORPUSCULAR VOLUME 99 fL (79.0-98.0); MONOCYTES # (AUTO) 0.6 K/uL (0.0-1.0); NEUTROPHILS # (AUTO) 8.7 K/uL (1.8-7.7); NEUTROPHILS % (AUTO) 76.8 % (40.0-70.0); PLATELET COUNT (AUTO) 199 K/uL (130-430); RED BLOOD CELL COUNT(AUTO) 3.14 MIL/uL (4.2-6.2); RED CELL DISTRIBUTION WIDTH 13.9 % (9.0-15.0); WHITE BLOOD COUNT (AUTO) 11.3 K/uL (4.8-10.8)
[2020-03-22 07:38] LABS: ANION GAP 9 (5-15); CALCIUM 7.8 mg/dL (8.4-11.0); CHLORIDE 111 mmol/L (98-107); CREATININE 1.48 mg/dL (0.55-1.30); GLUCOSE 90 mg/dL (70-99); POTASSIUM 3.6 mmol/L (3.5-5.1); SODIUM SERUM 139 mmol/L (136-145); UREA NITROGEN, BLOOD 33 mg/dL (8-21)
--- NOTE | 2020-03-22 08:00 | NUR ---
AM ROUNDS: PATIENT SLEEPING DURING ROUNDS. RESPONSE TO NAME BUT GARBLED WORDS. IV FLUIDS RUNNING AT LEFT FOREARM INTACT. WHEAT IN PLACE. BED LOCKED AT LOWEST POSITION. BED ALARM ON. NO DISTRESS.
[2020-03-22] MEDS ORDERED: CALCIUM 500 MG/TAB PO SCH (09:00)
[2020-03-22] MEDS: LOSARTAN POTASSIUM 25 MG TABLET PO SCH (09:00)
[2020-03-22 09:30] VITALS: BP_SYST 107
--- NOTE | 2020-03-22 09:30 | NUR ---
MEDS CRUSHED: PATIENT NEEDS A LOT OF ASSISTANCE IN TAKING HIS MEDS. PATIENT TOOK IT WITH PUDDING SLOWLY,ASPIRATION PRECAUTION RENDERED.NO PROBLEM.
[2020-03-22] MEDS: ASCORBIC ACID 500 MG TABLET PO SCH (09:51)
[2020-03-22] MEDS: TAMSULOSIN HCL 0.4 MG CAP PO SCH (09:51)
[2020-03-22] MEDS: FAMOTIDINE 20 MG TABLET PO SCH (09:51)
[2020-03-22] MEDS: cefTRIAXone 1 GM IVPB PREMIX 50 ML IV SCH (09:51)
[2020-03-22] MEDS: FOLIC ACID 1 MG TABLET PO SCH (09:52)
[2020-03-22] MEDS: MULTIVITAMINS TAB 1 TABLET PO SCH (09:52)
[2020-03-22] MEDS: ASPIRIN 81 MG TABLET(ECOTRIN) PO SCH (09:52)
[2020-03-22] MEDS: FERROUS SULFATE 325 MG TABLET.DR PO SCH ×2 (09:53→20:23)
[2020-03-22] MEDS: MUPIROCIN 2% TOPICAL OINTMENT 22 GM NS SCH ×2 (10:02→20:38)
[2020-03-22] MEDS: AMIODARONE HCL 200 MG TABLET PO SCH (10:11)
[2020-03-22] MEDS: RIVASTIGMINE 9.5 MG/24 HR PATCH.TD24 TD SCH (10:34)
--- NOTE | 2020-03-22 11:41 | NUR ---
BLOOD SUGAR: BLOOD SUGAR TAKEN,NO INSULIN COVERAGE NEEDED PER SLIDING SCALE.
[2020-03-22 12:00] VITALS: BP_SYST 96
[2020-03-22 13:18] LABS: FERRITIN 703 ng/mL (30-400)
[2020-03-22 14:41] LABS: MICROALBUMIN URINE RANDOM 41.9 ug/ml (NOT ESTABLISHED)
--- NOTE | 2020-03-22 14:41 | NUR ---
RADHAMO ROUNDS: DR SMITH CAME WITH ORDERS DECREASED RATE 1/2NS AT 100CC/H .
[2020-03-22] MEDS ORDERED: 0.45% NS 500 ML IV SCH (14:45)
[2020-03-22] MEDS ORDERED: 0.45% NACL 1,000 ML IV SCH (14:45)
[2020-03-22 15:51] VITALS: BP_SYST 129
--- NOTE | 2020-03-22 16:09 | NUR ---
AMY NEW ORDER: FOR VENOUS DOPPLER ULTRASOUND BILATERAL UPPER EXTREMITIES R/O DVT BY DR Alecia HARO. Addendum: 03/22/20 at 1616 by Ольга Valentin RN ADDED ORDER: HEPARIN 5000 UNITS SC EVERY 12HOURS.
--- NOTE | 2020-03-22 17:22 | NUR ---
Blood Sugar: Blood sugar taken,no insulin needed per sliding scale.
--- NOTE | 2020-03-22 18:02 | NUR ---
Daughter called: Spoke with Bette for patient's update. Will inform md in am that pt's daughter wants some updates regarding the condition.
--- NOTE | 2020-03-22 18:30 | NUR ---
End of Shift: Patient sleeping.Iv fluids on going at left forearm intact. Hinds in place. Safety measures rendered. Bed alarm on. Condition guarded.
--- NOTE | 2020-03-22 19:30 | NUR ---
CHANGE OF SHIFT; endorsed by day shift, confused, speaking in english to himself when received. no resp. distress. on contact isolation MRSA sputum.
[2020-03-22] MEDS: MIRTAZAPINE 15 MG TABLET PO SCH (20:24)
[2020-03-22 20:30] VITALS: BP_SYST 136
--- NOTE | 2020-03-22 20:40 | NUR ---
NOTES: VS checked. due meds given. pt. pretty confused, speaking in ukrainian. noted both arm swollen evan. rt. hand/arm. IVF infusing via left forearm. both legs pretty contracted, both legs elevated with pillows. lopez cath to osd. on vehicle monitor technician and shows atrial fib. on contact isolation. fall risk precaution.
[2020-03-22] MEDS ORDERED: HEPARIN SODIUM,PORCINE 5,000 UNITS/ML VIAL SUBCUT SCH ×2 (21:00→22:18)
--- NOTE | 2020-03-22 21:30 | NUR ---
NOTES: due hs care done, repositioned, turn to sides. pt. remain confused. both legs pretty contracted, heel protectors in place.
[2020-03-22] MEDS ORDERED: IPRATROPIUM/ALBUTEROL SULFATE 3 ML AMPUL.NEB (DUONEB) INH PRN (22:30)
[2020-03-22] MEDS ORDERED: GLUCOSE (DEXTROSE) ORAL GEL -Adults PO PRN (22:30)
[2020-03-22] MEDS ORDERED: ACETAMINOPHEN 325 MG TABLET PO PRN (22:30)
[2020-03-22] MEDS ORDERED: DEXTROSE 50% JECT 50 ML DISP.SYRIN IVP PRN (22:30)
[2020-03-22] MEDS ORDERED: BISACODYL 10 MG/SUPPOSITORY RC PRN (22:30)
[2020-03-22] MEDS ORDERED: ALBUMIN HUMAN 25% 100 ML IV PRN (22:30)
[2020-03-22] MEDS ORDERED: INSULIN REGULAR, HUMAN 100 UNITS/ML, 10 ML VIAL (humuLIN R) SUBCUT PRN (22:30)
[2020-03-22] MEDS ORDERED: D5W 1,000 ML IV PRN (22:30)
[2020-03-22] MEDS ORDERED: MIRTAZAPINE 15 MG TABLET PO SCH (22:32)
[2020-03-22] MEDS ORDERED: MUPIROCIN 2% TOPICAL OINTMENT 22 GM NS SCH (22:32)
[2020-03-22] MEDS ORDERED: MILK OF MAGNESIA 30 ML UDC PO SCH (22:45)
[2020-03-22] MEDS ORDERED: MINERAL OIL 133 ML ENEMA RC SCH (22:45)
--- NOTE | 2020-03-22 22:45 | NUR ---
NOTES: called Pharmacy and spoke to Amrit regarding Heparin ordered not showing on pyxis and iron and remeron not showing in pyxis since it was already given earlier and now showing that it was not given, will reorder by pharmacy to start tomorrow.
[2020-03-22] MEDS ORDERED: HEPARIN SODIUM,PORCINE 5,000 UNITS/ML VIAL SUBCUT ONE (23:00)
--- NOTE | 2020-03-23 | NUR ---
NOTES: pt. still pretty awake. condition observed. been talking to himself in cuban. fall risk precaution, bed alarm on.
[2020-03-23 01:10] VITALS: BP_SYST 140
--- NOTE | 2020-03-23 01:10 | NUR ---
NOTES: pt. sleeping, rechecked BP 140/69. pt. room close to nurses station.
--- NOTE | 2020-03-23 02:15 | NUR ---
NOTES: condition observed. remain sleeping.
--- NOTE | 2020-03-23 03:30 | NUR ---
NOTES: still sleeping. condition unchanged. no resp. distress. on fall risk precaution.
--- NOTE | 2020-03-23 05:00 | NUR ---
NOTES: partial am care done, had bm, liz care done. sacral dressing changed, no open wound, discoloration noted, Z shahbaz applied. repositioned and turn to sides.
--- NOTE | 2020-03-23 05:31 | NUR ---
NOTES: dressing changed on left heel and lateral site and 5th metatarsal and kerlix roll to secure. rt. heel reddened/Z shahbaz applied. rt. ankle ecchymosis /foam dressing applied with both lift boots and elevated with pillows. rt. hand/arm remain edematous.
--- NOTE | 2020-03-23 05:44 | NUR ---
NOTES; instructional technology instructor at bedside for portable chest X ray ordered.
--- NOTE | 2020-03-23 06:30 | NUR ---
CLOSING NOTES; BS checked 80, apple juice given orally. IVF patent and lopez cath to osd. on contact isolation for MRSA sputum. bed in low position , fall risk precaution. for further care and assistance, will endorse to incoming shift.
[2020-03-23 06:59] LABS: BASOPHILS # (AUTO) 0.1 K/uL (0.0-0.2); BASOPHILS % (AUTO) 0.6 % (0.0-2.0); EOSINOPHILS # (AUTO) 0.4 K/uL (0.0-0.4); HEMOGLOBIN 10.1 g/dL (14.0-18.0); LYMPHOCYTES # (AUTO) 1.4 K/uL (1.0-5.5); LYMPHOCYTES % (AUTO) 14.5 % (20.5-51.5); MEAN CORPUSCULAR HEMOGLOBIN 33 pg (27-31); MEAN CORPUSCULAR HGB CONC 34 % (32-36); MEAN CORPUSCULAR VOLUME 99 fL (79.0-98.0); MONOCYTES # (AUTO) 0.5 K/uL (0.0-1.0); MONOCYTES % (AUTO) 5.7 % (1.7-9.3); NEUTROPHILS # (AUTO) 7.2 K/uL (1.8-7.7); NEUTROPHILS % (AUTO) 75.2 % (40.0-70.0); PLATELET COUNT (AUTO) 194 K/uL (130-430); RED BLOOD CELL COUNT(AUTO) 3.03 MIL/uL (4.2-6.2); RED CELL DISTRIBUTION WIDTH 13.7 % (9.0-15.0); WHITE BLOOD COUNT (AUTO) 9.6 K/uL (4.8-10.8)
[2020-03-23 07:17] LABS: ANION GAP 9 (5-15); CALCIUM 7.8 mg/dL (8.4-11.0); CHLORIDE 111 mmol/L (98-107); GLUCOSE 84 mg/dL (70-99); POTASSIUM 3.5 mmol/L (3.5-5.1); SODIUM SERUM 139 mmol/L (136-145); UREA NITROGEN, BLOOD 30 mg/dL (8-21)
--- NOTE | 2020-03-23 07:25 | NUR ---
AM ROUNDS: PATIENT FAST ASLEEP DURING ROUNDS. UPDATES GIVEN BY NIGHT NURSE MACRINA. SAFETY MEASURES RENDERED. CALL LIGHT WITH IN REACH.BED LOCKED AT LOWEST POSITION. BED ALARM ON. NOT IN ANY DISTRESS.
[2020-03-23 08:00] VITALS: BP_SYST 145
[2020-03-23] MEDS ORDERED: FERROUS SULFATE 325 MG TABLET.DR PO SCH (09:00)
[2020-03-23] MEDS: 0.45% NACL 1,000 ML IV SCH ×2 (10:20→19:51)
[2020-03-23] MEDS: cefTRIAXone 1 GM IVPB PREMIX 50 ML IV SCH (10:21)
[2020-03-23] MEDS: HEPARIN SODIUM,PORCINE 5,000 UNITS/ML VIAL SUBCUT SCH ×2 (10:22→22:11)
[2020-03-23] MEDS: CALCIUM 500 MG/TAB PO SCH (10:23)
[2020-03-23] MEDS: ASCORBIC ACID 500 MG TABLET PO SCH (10:23)
[2020-03-23] MEDS: FOLIC ACID 1 MG TABLET PO SCH (10:23)
[2020-03-23] MEDS: MULTIVITAMINS TAB 1 TABLET PO SCH (10:23)
[2020-03-23] MEDS: FERROUS SULFATE 325 MG TABLET.DR PO SCH ×2 (10:23→22:03)
[2020-03-23] MEDS: FAMOTIDINE 20 MG TABLET PO SCH (10:23)
[2020-03-23] MEDS: TAMSULOSIN HCL 0.4 MG CAP PO SCH (10:24)
[2020-03-23] MEDS: AMIODARONE HCL 200 MG TABLET PO SCH (10:24)
[2020-03-23] MEDS: ASPIRIN 81 MG TABLET(ECOTRIN) PO SCH (10:24)
[2020-03-23] MEDS: LOSARTAN POTASSIUM 25 MG TABLET PO SCH (10:24)
[2020-03-23] MEDS: RIVASTIGMINE 9.5 MG/24 HR PATCH.TD24 TD SCH (10:26)
[2020-03-23] MEDS: MUPIROCIN 2% TOPICAL OINTMENT 22 GM NS SCH ×2 (10:27→22:03)
[2020-03-23 11:28] VITALS: BP_SYST 146
--- NOTE | 2020-03-23 11:55 | NUR ---
BLOOD SUGAR: BLOOD SUGAR TAKEN,NO INSULIN NEEDED PER SLIDING SCALE.
--- NOTE | 2020-03-23 13:30 | NUR ---
RN ROUNDS: PATIENT SLEEPING. STABLE.
[2020-03-23 13:50] VITALS: BP_SYST 146
--- NOTE | 2020-03-23 15:20 | NUR ---
PAVAN ROUNDS: DR Alecia HARO DOING ROUNDS ,WITH ORDERS DECREASE RATE TO 70CC/H ORDERED. Addendum: 03/23/20 at 1657 by Ольга Valentin RN VENOUS DOPPLER RESULTS: RESULTS SEEN BY DR Alecia HARO.NO DVT NOTED.
[2020-03-23 16:07] VITALS: BP_SYST 93
--- NOTE | 2020-03-23 18:59 | NUR ---
CLOSING NOTES: PATIENT SLEEPING DURING ROUNDS. STILL REFUSING TO EAT DINNER. WILL ENDORSED TO NIGHT NURSE.NOT IN ANY DISTRESS. BED LOCKED AT LOWEST POSITION.PRACTICE GUIDELINES MET THROUGH OUT THE SHIFT.
[2020-03-23 19:29] VITALS: BP_SYST 130
--- NOTE | 2020-03-23 19:30 | NUR ---
initial notes: pt is resting in bed quietly, no sign of pain, not distress, no sob. pt has on going ivf to his left forearm gauge 22- intact and patent. pt has dressing on his both feet, supported by heel boots and pillow. pt right arm is swollen. i remove id band from that arm.pt ahs foam dressing to his coccyx area. c pt has bm at this time. clean pt and reposition. lopez catheter intact and secured draining to yellow urine. needs attended at this time. safety precaution in place. bed alarm on side rails up low bed position. will monitor.
[2020-03-23] MEDS ORDERED: MIRTAZAPINE 15 MG TABLET PO SCH ×2 (21:00)
--- NOTE | 2020-03-23 22:00 | NUR ---
pt blood sugar is 69, follow hypoglycemic protocol. pt blood sugar went up to 207. stable. no sign of pain and distress. needs attended.
--- NOTE | 2020-03-24 | NUR ---
sleeping, comfortable, stable vital sign needs attended. maintained on contact isolation.
[2020-03-24 01:44] VITALS: BP_SYST 134
--- NOTE | 2020-03-24 03:51 | NUR ---
sleeping, comfortable, no sob. stable needs attended. maintained on contact isolation.
--- NOTE | 2020-03-24 04:47 | NUR ---
wound care and dressing change done, following wound care nurse order. pt tolerate well. stable.
--- NOTE | 2020-03-24 05:57 | NUR ---
pt is sleeping, no sign of pain, comfortable. no sob, stable. safety precaution in place. maintained on isolation. will monitor.
--- NOTE | 2020-03-24 06:51 | NUR ---
closing: pt is awake,alert. confused. no distress. blood sugar 72, stable. maintained on isolation. ivf infusing well. safety precatuon tin place. needs attended the whole shift. will give sbar report to am rn.
[2020-03-24 08:00] LABS: ANION GAP 10 (5-15); CHLORIDE 110 mmol/L (98-107); CREATININE 1.24 mg/dL (0.55-1.30); GLUCOSE 72 mg/dL (70-99); POTASSIUM 3.6 mmol/L (3.5-5.1); SODIUM SERUM 140 mmol/L (136-145); UREA NITROGEN, BLOOD 22 mg/dL (8-21)
[2020-03-24 08:05] VITALS: BP_SYST 99
[2020-03-24] MEDS: FAMOTIDINE 20 MG TABLET PO SCH (08:44)
[2020-03-24] MEDS: TAMSULOSIN HCL 0.4 MG CAP PO SCH (08:44)
[2020-03-24] MEDS: CALCIUM 500 MG/TAB PO SCH (08:44)
[2020-03-24] MEDS: ASPIRIN 81 MG TABLET(ECOTRIN) PO SCH (08:44)
[2020-03-24] MEDS: FERROUS SULFATE 325 MG TABLET.DR PO SCH (08:44)
[2020-03-24] MEDS: FOLIC ACID 1 MG TABLET PO SCH (08:45)
[2020-03-24] MEDS: ASCORBIC ACID 500 MG TABLET PO SCH (08:45)
[2020-03-24] MEDS: MULTIVITAMINS TAB 1 TABLET PO SCH (08:45)
[2020-03-24] MEDS: LOSARTAN POTASSIUM 25 MG TABLET PO SCH (08:46)
[2020-03-24] MEDS: HEPARIN SODIUM,PORCINE 5,000 UNITS/ML VIAL SUBCUT SCH (08:46)
[2020-03-24] MEDS: AMIODARONE HCL 200 MG TABLET PO SCH (08:47)
[2020-03-24] MEDS: RIVASTIGMINE 9.5 MG/24 HR PATCH.TD24 TD SCH (08:50)
[2020-03-24] MEDS: MUPIROCIN 2% TOPICAL OINTMENT 22 GM NS SCH (08:51)
[2020-03-24] MEDS: cefTRIAXone 1 GM IVPB PREMIX 50 ML IV SCH (08:53)
[2020-03-24 11:30] VITALS: BP_SYST 139
[2020-03-24] MEDS: 0.45% NACL 1,000 ML IV SCH (11:45)
--- NOTE | 2020-03-24 14:09 | NUR ---
Nutrition F/U Admitting Diagnosis: IRINEO, hypernatremia, UTI Medical History Comment: PMH: CVA, IRINEO, dementia, LE contractures per physician notes Pt also found w/ protein calorie malnutrition per physician notes 03/24: notes: Hx of prostate cancer, GERD, Colorectal cancer, QP, CKD, cachexia. 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 MD notes improving kidney function and last BM 03/[address] s/w RN Anup and nursing staff Elvia who reported of poor PO intake. Pt does not drink supplements either. This morning, pt ate 100% of the cream of wheat only. RN reported that they would try to feed pt who would only spit out the food. Pt may need nutrition support/ swallow eval if PO intake remains poor. Current Diet Order/Nutrition Support: Renal, puree, Nepro TID, Nehemias BID Pertinent Medications: MVI, folic acid, VIT C, ferrous sulfate, remeron, Heparin, Zinc, Os-celina, milk of magnesia, dulcolax. Pertinent Labs 03/24 Na 140 WNL, K 3.6 WNL, BUN 22 H, CRE 1.24 WNL, BG 72WNL Skin Integrity Comment: Guilherme scale: 14; per [employer] note 03/19: multiple DTIs/PIs noted; please refer to note for details Current % PO Poor (28% average of 6 meals x 3 refusal of meals) Estimated Energy Expenditure (kcals/day) 7721-9217 kcal/day (30-35 kcal/kg CBW for wound healing) Estimated Protein Required (g/day) 94-150 gm/day (1.25-2 gm/kg CBW for wound healing) Estimated Fluid Required (l/day) 2.3-2.7 L/day (1 ml/kcal/day for maintenance) Problem/Etiology/Signs/Symptoms Increased nutritional needs related to metabolic demands as evidenced by estimated nutritional requirements for wound healing. (*ongoing) Inadequate protein-energy intake r/t poor appetite 2/2 mentation AEB PO intake meets <30% of estimated needs (*new) Expected Outcomes/Goals - Monitor appetite and PO intakes, provision of nutrition support, w/ goal of pt meeting at least 75% of estimated nutritional needs, labs trending WNL, normal GI function, and skin integrity/wt maintenance Dietitian Recommendations * Recommend nutrition support (EN via NGT) if PO does not improve. (Poor PO intake >7days) * Recommend continue renal, pureed diet w/ Nepro TID, Nehemias BID (supplements provide 1455 kcal/day, 62 gm protein/day) * Encourage increase PO intakes * Continue assist during meals. Follow Up High Risk: F/U in 2-3days
--- NOTE | 2020-03-24 14:10 | NUR ---
Discharge Planning: DCP faxed pt referral to [facility] (f [phone] p [phone]) DCP to follow up Addendum: 03/24/20 at 1706 by Susana Ernst DP DCP spoke to Gabbie at [facility] (f [phone] p [phone]) patient will go to [facility] transportation arranged with Kateryna ([phone]) BLS6:30 pm. Patient packet taken to nurse station.
--- NOTE | 2020-03-24 14:18 | NUR ---
Dietitian Recommendations * Recommend nutrition support (EN via NGT) if PO does not improve. (Poor PO intake >7days) * Recommend continue renal, pureed diet w/ Nepro TID, Nehemias BID (supplements provide 1455 kcal/day, 62 gm protein/day) * Encourage increase PO intakes * Continue assist during meals. Please see Nutrition F/U note for details. [facility], RD
--- NOTE | 2020-03-24 15:33 | NUR ---
DISCHARGE PLANNING Earlier this afternoon called & spoke with Dr Wallace & gave ph order to dc back to SNF if cleared by Dr Goff, informed pt's nurse. Received call from pt's nurse that spoke with Dr Goff & cleared pt to dc back to SNF. jocelyn Meza urban and regional planner aware. Pt accepted back to room 3B. Called & informed pt's dtr Bette Tovar, ph [phone], dtr agreeable with discharge back to [place] today.
[2020-03-24 15:35] VITALS: BP_SYST 116
--- NOTE | 2020-03-24 17:30 | NUR ---
SBAR GIVEN TO NURSE BARNEY OF [place].
[2020-03-24 18:06] VITALS: BP_SYST 116
--- NOTE | 2020-03-24 19:53 | NUR ---
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 Exit Care provided. Patient in stable condition, ID band removed. IV catheter removed, intact and dressing applied, no active bleeding. Paperwork given to ambulance personel. All belongings sent with patient.
--- NOTE | 2020-03-24 19:53 | NUR ---
CLOSING NOTES, PT ENDORSED TO NIGHT NURSE LUDMILA. ENDORSED THAT IV HAS NOT BEEN DC YET. STILL WAITING FOR AMBULANCE PICKUP. Addendum: 03/24/20 at 1954 by Sj Galeas RN LEFT MESSAGE TO [facility] THAT PT IS BEING TRANSFERRED BACK TO [place]..
== END 2020-03-24 20:00 | DRG 70 ==
LOC: SED 19:08 → SMU 21:00 → STU 21:11
PROVIDERS: ADMIT Internal Medicine; ATTEND Internal Medicine
DX: G93.41 Metabolic encephalopathy (principal); E43 Unspecified severe protein-calorie malnutrition; R53.2 Functional quadriplegia; R65.11 Systemic inflammatory response syndrome (SIRS) of non-infectious origin with acute organ dysfunction; N17.9 Acute kidney failure, unspecified; E87.0 Hyperosmolality and hypernatremia; E87.2 Acidosis; I69.354 Hemiplegia and hemiparesis following cerebral infarction affecting left non-dominant side; I48.20 Chronic atrial fibrillation, unspecified; N11.9 Chronic tubulo-interstitial nephritis, unspecified; R64 Cachexia; D63.8 Anemia in other chronic diseases classified elsewhere; E86.0 Dehydration; F03.90 Unspecified dementia, unspecified severity, without behavioral disturbance, psychotic disturbance, mood disturbance, and anxiety; F32.9 Major depressive disorder, single episode, unspecified; J44.9 Chronic obstructive pulmonary disease, unspecified; K21.00 Gastro-esophageal reflux disease with esophagitis, without bleeding; N18.9 Chronic kidney disease, unspecified; Z20.828 Contact with and (suspected) exposure to other viral communicable diseases; E87.8 Other disorders of electrolyte and fluid balance, not elsewhere classified; E11.65 Type 2 diabetes mellitus with hyperglycemia; L89.620 Pressure ulcer of left heel, unstageable; Z85.048 Personal history of other malignant neoplasm of rectum, rectosigmoid junction, and anus; Z85.46 Personal history of malignant neoplasm of prostate; Z86.19 Personal history of other infectious and parasitic diseases; Z87.11 Personal history of peptic ulcer disease; Z87.440 Personal history of urinary (tract) infections; Z68.25 Body mass index [BMI] 25.0-25.9, adult
CPT/HCPCS: 36415; 36600; 71045; 76770; 78580-TC; 80048; 80053; 80061; 81000-TC; 82043; 82140-TC; 82570; 82570-TC; 82728; 82803-TC; 82962; 83036; 83605; 83615-TC; 83735-TC; 83880; 83935-TC; 84100-TC; 84153; 84302-TC; 84443-TC; 84550-TC; 85025; 85379; 85384-TC; 85610-TC; 85730-TC; 86140; 87040-TC; 87081; 87086; 93970; 94640; 96365; 99285; A9540; G0378; J0696; J1644; J1815